=== PATIENT | female | born 1995 | race African-American/Black ===

== ENCOUNTER 2017-08-28 13:23 | Emergency (ER) | payer OTHER, MEDICAID, SELFPAY ==
[2017-08-28 13:27] VITALS: BP 125/77; PULSE 69; RESP 14; TEMP 36.8; O2SAT 100; BMI 26.5
--- NOTE | 2017-08-28 13:28 | ED.ABDPAIN ---
HPI - Abdominal Pain <THEODORE Padgett - Last Filed: 08/28/17 22:30> General Chief Complaint: Urogenital-Female Stated Complaint: ABDOMINAL PAIN Time Seen by Provider: 08/28/17 13:28 History of Present Illness HPI narrative: 22-year-old female here for complaint of having pain to the lower abdominal area/pelvic region for the past week and a half. She reports that she has whitish vaginal discharge. She denies any fevers or chills. She also states that she has had burning with urination. No flank pain. Positive p.o. intake. No nausea or vomiting. She does report that she is sexually active. She denies any other concerns or complaints at this time. Related Data Home Medications Medication Instructions Recorded Confirmed ibuprofen 800 mg PO TIDP PRN 08/28/17 08/28/17 Allergies Allergy/AdvReac Type Severity Reaction Status Date / Time hydromorphone [From DILAUDID] Allergy Severe APNEA Verified 08/28/17 13:30 tramadol [TRAMADOL] Allergy Unknown Verified 08/28/17 13:30 Review of Systems <THEODORE Padgett - Last Filed: 08/28/17 22:30> Constitutional Denies chills, Denies fever(s), Denies lethargy and Denies weakness Eyes Denies change in vision, Denies eye discharge, Denies irritation and Denies loss of vision ENT Ears, Nose, Mouth, and Throat: Denies change in voice, Denies neck pain and Denies sore throat Cardiovascular Denies chest pain, Denies irregular heart rhythm, Denies lightheadedness, Denies palpitations, Denies dyspnea, Denies dyspnea on exertion and Denies orthopnea Respiratory Denies cough, Denies dyspnea, Denies dyspnea on exertion and Denies wheezing Genitourinary Reports pelvic pain and Reports vaginal discharge Musculoskeletal Denies neck pain Integumentary/Breasts Denies pruritus, Denies erythema, Denies rash and Denies wounds Neurologic Denies confusion, Denies loss of vision and Denies weakness Psychiatric Denies anxiety, Denies confusion, Denies depression, Denies homicidal ideation and Denies suicidal ideation Endocrine Denies palpitations Hematologic/Lymphatic Denies easy bruising Allergic/Immunologic Denies wheezing Exam <THEODORE Padgett - Last Filed: 08/28/17 22:30> Initial Vital Signs Initial Vital Signs: Vital Signs Temperature 98.3 F 08/28/17 13:27 Pulse Rate 69 08/28/17 13:27 Respiratory Rate 14 08/28/17 13:27 Blood Pressure 125/77 H 08/28/17 13:27 Pulse Oximetry 100 08/28/17 13:27 Const General: cooperative and well developed Nutritional Appearance: well nourished Orientation: alert, awake, oriented x3 and not confused [facility] Mouth: oral mucosae normal and moist mucous membranes Eyes Conjunctivae: conjunctivae normal Sclera: sclerae normal Pupils: PERRL EOM: EOM intact bilaterally Resp Effort & Inspection: normal respiratory effort, able to speak in complete sentences, no respiratory distress and no use of accessory muscles Auscultation: clear to auscultation bilaterally, no rales, no rhonchi and no wheezes Cardio Rate: regular rate Rhythm: regular rhythm Heart Sounds: no click, no gallops, no murmurs and no rubs GI Inspection: non-distended Palpation: soft, no hepatosplenomegaly, No guarding, No hernia, No mass, No pulsatile mass and tender Auscultation: normal bowel sounds General: No CVA tenderness External Female Exam: external appearance normal and normal appearance of the urethra Speculum Exam - Vagina: abnormal vaginal discharge white Speculum Exam - Cervix: normal appearance of the cervix Bimanual Exam- Vagina & Uterus: cervical motion tenderness Bimanual Exam- Adnexa, other: no adnexal masses and adnexal tenderness Skin General: no rashes or lesions noted, No jaundice and No petechiae Neuro General: alert, oriented x3, gait normal and no focal motor deficits Speech: speech normal Extrem General: full ROM, no clubbing, cyanosis or edema, no pedal edema and no calf tenderness <Kassie Goodrich DO - Last Filed: 09/04/17 18:48> Initial Vital Signs Initial Vital Signs: Vital Signs Temperature 98.3 F 08/28/17 13:27 Pulse Rate 69 08/28/17 13:27 Respiratory Rate 14 08/28/17 13:27 Blood Pressure 125/77 H 08/28/17 13:27 Pulse Oximetry 100 08/28/17 13:27 Course <THEODORE Padgett - Last Filed: 08/28/17 22:30> Orders Ordered: Discontinued Medications Acetaminophen (Tylenol) 650 mg PO NOW ONE Stop: 08/28/17 17:19 Last Admin: 08/28/17 17:57 Dose: 650 mg Azithromycin (Zithromax) 1,000 mg PO NOW ONE Stop: 08/28/17 17:20 Last Admin: 08/28/17 17:57 Dose: 1,000 mg Ceftriaxone Sodium (Rocephin) 500 mg IM NOW ONE Stop: 08/28/17 17:20 Ceftriaxone Sodium (Rocephin) 500 mg IM NOW ONE Stop: 08/28/17 17:31 Ceftriaxone Sodium (Rocephin) 1,000 mg IM NOW ONE Stop: 08/28/17 17:27 Ceftriaxone Sodium (Rocephin) 500 mg IM NOW ONE Stop: 08/28/17 18:16 Last Admin: 08/28/17 18:09 Dose: 500 mg Ceftriaxone Sodium/Dextrose (Rocephin) 1 gm in 50 mls @ 100 mls/hr IV NOW ONE Stop: 08/28/17 17:53 Lidocaine HCl (Xylocaine 1%) 2.1 ml INJ NOW ONE Stop: 08/28/17 17:20 Metronidazole (Metronidazole) 2,000 mg PO NOW ONE Stop: 08/28/17 17:30 Last Admin: 08/28/17 18:04 Dose: 2,000 mg Vital Signs - 8 hr 08/28/17 17:02 08/28/17 17:25 Pulse Rate 84 63 Respiratory Rate 13 16 Blood Pressure [Right Arm] 119/74 119/74 Pulse Oximetry 100 100 <Kassie Goodrich DO - Last Filed: 09/04/17 18:48> Orders Ordered: Discontinued Medications Acetaminophen (Tylenol) 650 mg PO NOW ONE Stop: 08/28/17 17:19 Last Admin: 08/28/17 17:57 Dose: 650 mg Azithromycin (Zithromax) 1,000 mg PO NOW ONE Stop: 08/28/17 17:20 Last Admin: 08/28/17 17:57 Dose: 1,000 mg Ceftriaxone Sodium (Rocephin) 500 mg IM NOW ONE Stop: 08/28/17 17:20 Ceftriaxone Sodium (Rocephin) 500 mg IM NOW ONE Stop: 08/28/17 17:31 Ceftriaxone Sodium (Rocephin) 1,000 mg IM NOW ONE Stop: 08/28/17 17:27 Ceftriaxone Sodium (Rocephin) 500 mg IM NOW ONE Stop: 08/28/17 18:16 Last Admin: 08/28/17 18:09 Dose: 500 mg Ceftriaxone Sodium/Dextrose (Rocephin) 1 gm in 50 mls @ 100 mls/hr IV NOW ONE Stop: 08/28/17 17:53 Lidocaine HCl (Xylocaine 1%) 2.1 ml INJ NOW ONE Stop: 08/28/17 17:20 Metronidazole (Metronidazole) 2,000 mg PO NOW ONE Stop: 08/28/17 17:30 Last Admin: 08/28/17 18:04 Dose: 2,000 mg Vital Signs - 8 hr 08/28/17 17:02 08/28/17 17:25 Pulse Rate 84 63 Respiratory Rate 13 16 Blood Pressure [Right Arm] 119/74 119/74 Pulse Oximetry 100 100 MDM - Abdominal Pain <THEODORE Padgett - Last Filed: 08/28/17 22:30> Lab Data Result diagrams: 08/28/17 13:09 08/28/17 13:09 Lab Results 08/28/17 08/28/17 08/28/17 Range/Units 13:09 13:09 14:12 WBC 13.5 H (4.5-11.0) X10^3/uL RBC 4.44 (4.0-5.2) X10^6/uL Hgb 13.7 (12.0-16.0) g/dL Hct 40.6 (36-46) % MCV 91.5 (80-100) fL MCH 30.9 (26-34) PG MCHC 33.8 (30-36) % RDW 14.5 (11.6-14.8) % Plt Count 191 (150-400) X10^3/uL Neut % (Auto) 70.5 (50-75) % Lymph % (Auto) 21.9 L (25-40) % Warrick % (Auto) 6.4 (3-14) % Eos % (Auto) 0.9 L (2-4) % Baso % (Auto) 0.3 (0-2) % Neut # (Auto) 9600 H (1232-6104) /uL Sodium 142 (137-145) mmol/L Potassium 4.2 (3.4-5.1) mmol/L Chloride 101 (98-107) mmol/L Carbon Dioxide 30 (22-32) mmol/L BUN 9 (7-17) mg/dL Creatinine 0.80 (0.52-1.04) mg/dL Estimated GFR > 60.0 (>60) mL/min BUN/Creatinine Ratio 11.3 (6-22) Glucose 79 (70-100) mg/dL Calcium 9.3 (8.4-10.2) mg/dL Total Bilirubin 0.4 (0.2-1.3) mg/dL AST 18 (14-36) IU/L ALT 28 (9-52) IU/L Alkaline Phosphatase 74 (38-126) U/L Total Protein 7.2 (6.3-8.2) g/dL Albumin 4.1 (3.5-5.0) g/dL Globulin 3.1 (1.7-4.1) g/dL Albumin/Globulin Ratio 1.3 (1.0-2.8) Urine RBC 0-1/hpf (0-5/HPF) Urine WBC 10-30/hpf H (0-5/HPF) Ur Squamous Epith Cells 1-5 /hpf Urine Bacteria Moderate (10-30) H (None) Ur Culture Indicated? Specimen cultured Micro UA Comment Not Reportable Ur Chlamydia DNA (PCR) N gonorrhoeae DNA (PCR) 08/28/17 Range/Units 14:56 WBC (4.5-11.0) X10^3/uL RBC (4.0-5.2) X10^6/uL Hgb (12.0-16.0) g/dL Hct (36-46) % MCV (80-100) fL MCH (26-34) PG MCHC (30-36) % RDW (11.6-14.8) % Plt Count (150-400) X10^3/uL Neut % (Auto) (50-75) % Lymph % (Auto) (25-40) % Warrick % (Auto) (3-14) % Eos % (Auto) (2-4) % Baso % (Auto) (0-2) % Neut # (Auto) (2978-9643) /uL Sodium (137-145) mmol/L Potassium (3.4-5.1) mmol/L Chloride (98-107) mmol/L Carbon Dioxide (22-32) mmol/L BUN (7-17) mg/dL Creatinine (0.52-1.04) mg/dL Estimated GFR (>60) mL/min BUN/Creatinine Ratio (6-22) Glucose (70-100) mg/dL Calcium (8.4-10.2) mg/dL Total Bilirubin (0.2-1.3) mg/dL AST (14-36) IU/L ALT (9-52) IU/L Alkaline Phosphatase (38-126) U/L Total Protein (6.3-8.2) g/dL Albumin (3.5-5.0) g/dL Globulin (1.7-4.1) g/dL Albumin/Globulin Ratio (1.0-2.8) Urine RBC (0-5/HPF) Urine WBC (0-5/HPF) Ur Squamous Epith Cells Urine Bacteria (None) Ur Culture Indicated? Micro UA Comment Ur Chlamydia DNA (PCR) Detected H N gonorrhoeae DNA (PCR) Not detected Imaging Data pelvic us: Radiologist's impression: PROCEDURE: US PELVIC COMPLETE INDICATIONS: Lower abdominal/pelvic pain TECHNIQUE: Real-time scanning was performed of the pelvic organs, with image documentation. Additional endovaginal scanning was necessary due to incomplete visualization of the adnexal and endometrial structures by transabdominal scanning. COMPARISON: [facility], US, PELVIC COMPLETE, 09/26/2015, 15:57. FINDINGS: Transabdominal scanning: Limited scanning through the kidneys shows no hydronephrosis. The kidneys measure 10.3 CM right and 10.8 CM left. No pathologic free abdominal or pelvic fluid. Endovaginal scanning: Uterus: Uterus is normal in size at 3.8 x 4.9 x 7.4 cm. The endometrium measures 6 mm in combined thickness. Ovaries: The right ovary measures 24 x 30 x 31 mm and contains a small complex cyst measuring 13 x 14 x 19 mm. The left ovary measures 24 x 27 x 30 mm and contains a small 0.8 x 1.0 x 1.1 cm complex cyst. IMPRESSION: Small bilateral complex ovarian cysts, likely hemorrhagic. Both measure less than 2 cm in size. Dictated by: Ricardo Mcqueen M.D. on 08/28/2017 at 15:38 Approved by: Ricardo Mcqueen M.D. on 08/28/2017 at 15:42 MDM Narrative Medical decision making narrative: Ultrasound of the pelvic region shows 2 small cyst 1 each side most likely hemorrhagic suspect for contributing to her discomfort. Wet prep shows positive for Trichomonas. GC chlamydia urine intention to indicates chlamydia positive. Urinalysis shows urinary tract infection. She was given 1 g of Rocephin IM in the emergency room. She was also given azithromycin 1 g p.o. and 2 g of metronidazole p.o. she is placed on Macrobid antibiotic to treat the urinary tract infection. Plenty of fluids. She was instructed to notify her partner her of the results to abstain from sex until cleared by her primary care. Follow up with primary care provider. For any worsening symptoms return to the emergency room. <Kassie Goodrich DO - Last Filed: 09/04/17 18:48> Lab Data Lab Results 08/28/17 08/28/17 08/28/17 Range/Units 13:09 13:09 14:12 WBC 13.5 H (4.5-11.0) X10^3/uL RBC 4.44 (4.0-5.2) X10^6/uL Hgb 13.7 (12.0-16.0) g/dL Hct 40.6 (36-46) % MCV 91.5 (80-100) fL MCH 30.9 (26-34) PG MCHC 33.8 (30-36) % RDW 14.5 (11.6-14.8) % Plt Count 191 (150-400) X10^3/uL Neut % (Auto) 70.5 (50-75) % Lymph % (Auto) 21.9 L (25-40) % Warrick % (Auto) 6.4 (3-14) % Eos % (Auto) 0.9 L (2-4) % Baso % (Auto) 0.3 (0-2) % Neut # (Auto) 9600 H (5817-7419) /uL Sodium 142 (137-145) mmol/L Potassium 4.2 (3.4-5.1) mmol/L Chloride 101 (98-107) mmol/L Carbon Dioxide 30 (22-32) mmol/L BUN 9 (7-17) mg/dL Creatinine 0.80 (0.52-1.04) mg/dL Estimated GFR > 60.0 (>60) mL/min BUN/Creatinine Ratio 11.3 (6-22) Glucose 79 (70-100) mg/dL Calcium 9.3 (8.4-10.2) mg/dL Total Bilirubin 0.4 (0.2-1.3) mg/dL AST 18 (14-36) IU/L ALT 28 (9-52) IU/L Alkaline Phosphatase 74 (38-126) U/L Total Protein 7.2 (6.3-8.2) g/dL Albumin 4.1 (3.5-5.0) g/dL Globulin 3.1 (1.7-4.1) g/dL Albumin/Globulin Ratio 1.3 (1.0-2.8) Urine RBC 0-1/hpf (0-5/HPF) Urine WBC 10-30/hpf H (0-5/HPF) Ur Squamous Epith Cells 1-5 /hpf Urine Bacteria Moderate (10-30) H (None) Ur Culture Indicated? Specimen cultured Micro UA Comment Not Reportable Ur Chlamydia DNA (PCR) N gonorrhoeae DNA (PCR) 08/28/17 Range/Units 14:56 WBC (4.5-11.0) X10^3/uL RBC (4.0-5.2) X10^6/uL Hgb (12.0-16.0) g/dL Hct (36-46) % MCV (80-100) fL MCH (26-34) PG MCHC (30-36) % RDW (11.6-14.8) % Plt Count (150-400) X10^3/uL Neut % (Auto) (50-75) % Lymph % (Auto) (25-40) % Warrick % (Auto) (3-14) % Eos % (Auto) (2-4) % Baso % (Auto) (0-2) % Neut # (Auto) (1936-5387) /uL Sodium (137-145) mmol/L Potassium (3.4-5.1) mmol/L Chloride (98-107) mmol/L Carbon Dioxide (22-32) mmol/L BUN (7-17) mg/dL Creatinine (0.52-1.04) mg/dL Estimated GFR (>60) mL/min BUN/Creatinine Ratio (6-22) Glucose (70-100) mg/dL Calcium (8.4-10.2) mg/dL Total Bilirubin (0.2-1.3) mg/dL AST (14-36) IU/L ALT (9-52) IU/L Alkaline Phosphatase (38-126) U/L Total Protein (6.3-8.2) g/dL Albumin (3.5-5.0) g/dL Globulin (1.7-4.1) g/dL Albumin/Globulin Ratio (1.0-2.8) Urine RBC (0-5/HPF) Urine WBC (0-5/HPF) Ur Squamous Epith Cells Urine Bacteria (None) Ur Culture Indicated? Micro UA Comment Ur Chlamydia DNA (PCR) Detected H N gonorrhoeae DNA (PCR) Not detected Discharge Plan Departure Patient Disposition: Home, Self-Care Clinical Impression: Trichomoniasis, Urinary tract infection, Chlamydia infection, Acute pelvic inflammatory disease (PID) Discharge Date/Time: 08/28/17 18:19 Interventions: ED Discharge Assessment Last Done: 08/28/17 18:18 Instructions: DI for Pelvic Inflammatory Disease Activity Restrictions/Additional Instructions: Ultrasound showed 2 small cysts bilaterally that may be causing some of year discomfort. Laboratory results were positive for chlamydia and Trichomonas. Here given antibiotics to treat the infection and for PID. Follow up with your primary care provider. Abstain from sex until cleared by primary care provider. Notify your partner of results and need to be treated. Tylenol Motrin as needed for any discomfort. Urinalysis indicates urinary tract infection you have been placed on Macrobid antibiotic use as directed. Plenty of fluids. Return emergency room for any worsening symptoms. Prescriptions: No Action ibuprofen 800 MG tablet 800 mg PO TIDP PRN (Reason: Pain, Moderate) RF: 0 Referrals: [facility] [Provider Group] <Kassie Goodrich, DO - Last Filed: 09/04/17 18:48> Cosign ED Attending Jose Roberto Attestation: I was immediately available in the department for consultation. Documentation has been reviewed. I agree with assessment and plan.
[2017-08-28 14:32] LABS: RBC Urine 0-1/HPF (0-5/HPF); Squamous Epithelial Cell Urine 1-5 /HPF; WBC Urine 10-30/HPF (0-5/HPF)
[2017-08-28 14:33] LABS: Bacteria Urine Moderate (10-30); Culture Indicated Urine Specimen Cultured
--- NOTE | 2017-08-28 14:49 | DI.US.S_ITS ---
PROCEDURE: US PELVIC COMPLETE INDICATIONS: Lower abdominal/pelvic pain TECHNIQUE: Real-time scanning was performed of the pelvic organs, with image documentation. Additional endovaginal scanning was necessary due to incomplete visualization of the adnexal and endometrial structures by transabdominal scanning. COMPARISON: [facility], , PELVIC COMPLETE, 09/26/2015, 15:57. FINDINGS: Transabdominal scanning: Limited scanning through the kidneys shows no hydronephrosis. The kidneys measure 10.3 CM right and 10.8 CM left. No pathologic free abdominal or pelvic fluid. Endovaginal scanning: Uterus: Uterus is normal in size at 3.8 x 4.9 x 7.4 cm. The endometrium measures 6 mm in combined thickness. Ovaries: The right ovary measures 24 x 30 x 31 mm and contains a small complex cyst measuring 13 x 14 x 19 mm. The left ovary measures 24 x 27 x 30 mm and contains a small 0.8 x 1.0 x 1.1 cm complex cyst. IMPRESSION: Small bilateral complex ovarian cysts, likely hemorrhagic. Both measure less than 2 cm in size. Dictated by: Ricardo Mcqueen M.D. on 08/28/2017 at 15:38 Approved by: Ricardo Mcqueen M.D. on 08/28/2017 at 15:42
[2017-08-28 15:21] LABS: Add Manual Diff / Slide Review NO; Basophils Percent Auto 0.3 % (0-2); Eosinophils Percent Auto 0.9 % (2-4); Hematocrit 40.6 % (36-46); Hemoglobin 13.7 g/dL (12.0-16.0); Lymphocytes Percent Auto 21.9 % (25-40); Mean Corpuscular HGB Conc 33.8 % (30-36); Mean Corpuscular Hemoglobin 30.9 PG (26-34); Mean Corpuscular Volume 91.5 fL (80-100); Monocytes Percent Auto 6.4 % (3-14); Neutrophils Absolute Auto 9600 /uL (3000-5900); Neutrophils Percent Auto 70.5 % (50-75); Platelet Count 191 X10^3/uL (150-400); Red Blood Cell Count 4.44 X10^6/uL (4.0-5.2); Red Cell Distribution Width 14.5 % (11.6-14.8); White Blood Cell Count 13.5 X10^3/uL (4.5-11.0)
[2017-08-28 15:32] LABS: Alanine Aminotransferase 28 IU/L (9-52); Albumin 4.1 g/dL (3.5-5.0); Albumin Globulin Ratio 1.3 (1.0-2.8); Alkaline Phosphatase 74 U/L (38-126); Aspartate Aminotransferase 18 IU/L (14-36); BUN Creatinine Ratio 11.3 (6-22); Bilirubin Total 0.4 mg/dL (0.2-1.3); Blood Urea Nitrogen 9 mg/dL (7-17); Calcium 9.3 mg/dL (8.4-10.2); Carbon Dioxide 30 mmol/L (22-32); Chloride 101 mmol/L (98-107); Estimated Glomerular Filt Rate > 60.0 mL/min (>60); Globulin 3.1 g/dL (1.7-4.1); Glucose 79 mg/dL (70-100); HEMOLYSIS < 15 (0-50); Potassium 4.2 mmol/L (3.4-5.1); Sodium 142 mmol/L (137-145); Total Protein 7.2 g/dL (6.3-8.2)
[2017-08-28 16:39] LABS: Urine N gonorrhoeae Not Detected
[2017-08-28 17:02] VITALS: BP 119/74; PULSE 84; RESP 13; O2SAT 100
[2017-08-28 17:25] VITALS: BP 119/74; PULSE 63; RESP 16; O2SAT 100
[2017-08-28] MEDS: AZITHROMYCIN 250 MG TABLET 1000 MG PO (17:57)
[2017-08-28] MEDS: ACETAMINOPHEN 325 MG TABLET 650 MG PO (17:57)
[2017-08-28] MEDS: metroNIDAZOLE 500 MG TABLET 2000 MG PO (18:04)
[2017-08-28] MEDS: cefTRIAXone 500 MG VIAL IM (18:09)
[2017-08-29 08:23] LABS: Urine Chlamydia Detected
== END 2017-08-28 18:19 | disposition home or self-care (01) ==
PROVIDERS: Emergency Provider Nurse Practitioner Family
DX: N39.0 Urinary tract infection, site not specified (principal); A59.9 Trichomoniasis, unspecified; A74.9 Chlamydial infection, unspecified; N73.0 Acute parametritis and pelvic cellulitis
CPT/HCPCS: 36415; 76830; 76856; 80053; 81003; 81015; 81025; 85025; 87070; 87077; 87086; 87205; 87210; 87491; 87591; 96372; 99283; 99284; J0696

== ENCOUNTER → 2018-02-06 12:10 | Outpatient (CLI) | payer OTHER, MEDICAID, SELFPAY ==
--- NOTE | 2018-02-06 | DI.US.S_ITS ---
PROCEDURE: US OB >= 14 WEEKS FETUS INDICATIONS: SIZE AND DATING OUTSIDE/PRIOR DATING DATA: Last menstrual period (LMP): 10/24/17. LMP-based estimated date of delivery (TERESITA): 07/31/18. First dating scan (date and location): 02/06/18. Estimated date of delivery (TERESITA) from first dating scan: 07/28/18. TECHNIQUE: Real-time scanning was performed of the fetus, with image documentation and biometric measurements. Endovaginal scanning: No COMPARISON: None. FINDINGS: General: A single living intrauterine gestation is present. Presentation: Variable. Placenta: Placental position is posterior Amniotic fluid index: Subjectively normal. heart rate: 160 beats per minute. Maternal cervical canal: 3.1 cm long. biometrics: Biparietal diameter: 16 weeks Head circumference: 16 weeks 5 days Abdominal circumference: 15 weeks 4 days Femur length: 14 weeks 5 days Estimated gestational age from initial scan: not applicable. Composite gestational age from present scan: 15 weeks 3 days Estimated weight and percentile: N./A. Measurement variability for biometric dating: +/- 7 days from 14 weeks to 15 weeks 6 days gestation, +/- 10 days from 16 weeks to 21 weeks 6 days gestation, +/- 2 weeks from 22 weeks to 27 weeks 6 days gestation, +/- 3 weeks for 28 weeks gestation or later. weight reference: 4500 g or EFW >90/95% is considered macrosomia or large for gestational age. EFW <10% is small for gestational age. EFW 5% or less is considered intra-uterine growth restriction. IMPRESSION: 15 week 3 day single living IUP. Followup anatomic survey recommended. Dictated by: Bebeto HASSAN Interpreted: Arnel Morrison MD on 02/06/2018 at 14:29 Approved by: Siva Flores M.D. on 02/07/2018 at 10:06
[2018-02-06 12:53] LABS: Add Manual Diff / Slide Review NO; Basophils Percent Auto 0.4 % (0-2); Eosinophils Percent Auto 0.6 % (2-4); Hematocrit 37.7 % (36-46); Hemoglobin 12.9 g/dL (12.0-16.0); Lymphocytes Percent Auto 24.6 % (25-40); Mean Corpuscular HGB Conc 34.1 % (30-36); Mean Corpuscular Hemoglobin 31.8 PG (26-34); Mean Corpuscular Volume 93.1 fL (80-100); Monocytes Percent Auto 4.7 % (3-14); Neutrophils Absolute Auto 6800 /uL (3000-5900); Neutrophils Percent Auto 69.7 % (50-75); Platelet Count 223 X10^3/uL (150-400); Red Blood Cell Count 4.05 X10^6/uL (4.0-5.2); Red Cell Distribution Width 14.4 % (11.6-14.8); White Blood Cell Count 9.8 X10^3/uL (4.5-11.0)
[2018-02-06 12:59] LABS: Appearance Urine UA CLEAR; Bilirubin Urine UA NEGATIVE (NEGATIVE); Color Urine UA YELLOW; Glucose Urine UA NEGATIVE (Normal); Ketones Urine UA NEGATIVE (NEGATIVE); Leukocyte Esterase Urine UA NEGATIVE (NEGATIVE); Nitrite Urine UA NEGATIVE (Negative); Occult Blood Urine UA NEGATIVE (Negative); Protein Urine UA NEGATIVE (Negative); Specific Gravity Urine UA <=1.005 (1.000-1.035); Urobilinogen Urine UA 0.2 E.U./dL (0.2)
[2018-02-06 14:51] LABS: Glucose 64 mg/dL (70-100)
[2018-02-06 14:56] LABS: Hemoglobin A1C% w Est Avg Glu 5.1 % (4.0-6.0)
[2018-02-06 16:09] LABS: Hepatitis B Surface Antigen NEGATIVE s/c (NEGATIVE); Rubella Antibody IgG 17.4 IU/mL (>15)
[2018-02-06 16:26] LABS: HIV 1 and 2 Antibody NEGATIVE (NEGATIVE); Hep C Virus Ab w/Reflex Quant NEGATIVE s/c (NEGATIVE)
[2018-02-07 14:03] LABS: HSV 2 IGG AB < 0.90 index (< 0.90)
[2018-02-07 14:14] LABS: RPR Screen Nonreactive (Nonreactive)
== END ==
PROVIDERS: PCP Family Medicine; Visit Provider Family Medicine
DX: Z36.89 Encounter for other specified antenatal screening (principal); Z3A.15 15 weeks gestation of pregnancy; O26.892 Other specified pregnancy related conditions, second trimester; R55 Syncope and collapse
CPT/HCPCS: 36415; 76811; 80055; 81003; 82947; 83036; 86695; 86696; 86703; 86787; 86803; 86850; 86900; 86901; 87086

== ENCOUNTER → 2018-02-12 11:20 | Outpatient (CLI) | payer OTHER, MEDICAID, SELFPAY ==
[2018-02-17 10:23] LABS: AFP, Serum 39.3 ng/mL; Calc Gestational Age 15.9; Cigarette Smoker NO; Donated Egg NOT GIVEN; Donor Egg Age NOT GIVEN; Estriol, Free 0.74 ng/mL; Inhibin A, Dimeric 339 pg/mL; Maternal Ethnicity AFRICAN AMERICAN; Maternal Weight 144 lbs; Number of Fetuses NOT GIVEN; Previous Pregnancy Down Syndro NOT GIVEN
== END ==
PROVIDERS: PCP Family Medicine; Visit Provider Family Medicine
DX: Z34.82 Encounter for supervision of other normal pregnancy, second trimester (principal)
CPT/HCPCS: 36415; 82105; 82677; 84702; 86336

== ENCOUNTER → 2018-03-20 10:51 | Outpatient (CLI) | payer OTHER, MEDICAID, SELFPAY ==
--- NOTE | 2018-03-20 10:54 | DI.US.S_ITS ---
PROCEDURE: US OB >= 14 WEEKS FETUS INDICATIONS: Viability and dates OUTSIDE/PRIOR DATING DATA: Last menstrual period (LMP): 10/24/17. LMP-based estimated date of delivery (TERESITA): 07/31/18. First dating scan (date and location): 02/06/18. Estimated date of delivery (TERESITA) from first dating scan: 07/28/18. TECHNIQUE: Real-time scanning was performed of the fetus, with image documentation and biometric measurements. Endovaginal scanning: Not performed COMPARISON: [facility], , OB >= 14 WEEKS FETUS, 03/14/2018, 10:42. FINDINGS: General: A single living intrauterine gestation is present. Presentation: Vertex. Placenta: Placental position is anterior, without previa. Amniotic fluid index: 16.1 cm, normal range is 5-24 cm. heart rate: 162 beats per minute. Maternal cervical canal: 4.4 cm long. Normal lower limit is 2.5 cm. biometrics: Biparietal diameter: 5.1 cm, 21 weeks 3 days Head circumference: 19.4 cm, 21 weeks 4 days Abdominal circumference: 16.2 cm, 21 weeks 2 days Femur length: 3.8 cm, 22 weeks one day Estimated gestational age from initial scan: 21 weeks 3 days. Composite gestational age from present scan: 21 weeks 4 days Estimated weight and percentile: 439 g, 56th percentile Measurement variability for biometric dating: +/- 7 days from 14 weeks to 15 weeks 6 days gestation, +/- 10 days from 16 weeks to 21 weeks 6 days gestation, +/- 2 weeks from 22 weeks to 27 weeks 6 days gestation, +/- 3 weeks for 28 weeks gestation or later. weight reference: 4500 g or EFW >90/95% is considered macrosomia or large for gestational age. EFW <10% is small for gestational age. EFW 5% or less is considered intra-uterine growth restriction. Anatomic survey: Neuro: Ventricles are non-dilated at less than 10 mm. Cisterna magna is normal at 3-11 mm. Cerebellum is normal in size and morphology. Nuchal skin fold: Normal at less than 6 mm between 14-21 weeks gestational age. Face: Nose and lips, facial profile are normal. Spine: No evidence for spina bifida. Heart: 4-chambered heart is present, with normal ventricular outflow tracts. Diaphragm: Diaphragm is intact. Stomach: Left-sided stomach is present. Kidneys: No hydronephrosis. Normal is less than 5 mm in 2nd trimester, less than 7 mm in 3rd trimester. Cord: 3-vessel cord has orthotopic insertion. Bladder: Normal in size. Extremities: All 4 extremities identified. Mild bilateral maternal hydronephrosis. IMPRESSION: Single living intrauterine fetus in vertex presentation demonstrating appropriate interval growth as above. Presumed related mild bilateral maternal hydronephrosis Dictated by: Siva Flores M.D. on 03/20/2018 at 14:34 Approved by: Siva Flores M.D. on 03/20/2018 at 14:38
== END ==
PROVIDERS: PCP Family Medicine; Visit Provider Family Medicine
DX: Z36.89 Encounter for other specified antenatal screening (principal); Z3A.21 21 weeks gestation of pregnancy
CPT/HCPCS: 76811

== ENCOUNTER 2018-03-29 17:34 | Emergency (ER) | payer OTHER, MEDICAID, SELFPAY ==
[2018-03-29 17:48] VITALS: BP 112/73; PULSE 95; RESP 18; TEMP 37; O2SAT 100
--- NOTE | 2018-03-29 19:24 | ED_ITS ---
HPI - URI/Sore Throat <Erum Rubio PA-C - Last Filed: 03/29/18 22:00> General Chief Complaint: Upper Respiratory Symptoms Stated Complaint: cough, 22 weeks Time Seen by Provider: 03/29/18 19:11 Source: patient Mode of arrival: ambulatory Limitations: no limitations History of Present Illness HPI Narrative: This 22-year-old female who is 22 weeks comes in due to ongoing cough and now some nasal drainage and PND. She states that she has had the cough for over a month as has her 4-year-old son. She states that she has not had fever and she does not feel particularly ill. She states that she always has some fatigue and relative exercise intolerance when she is and this seems normal, she denies any acute dyspnea or wheeze. She denies any chest pain, no new swelling in her extremities. She states that her son came home ill prior to her developing the nasal symptoms. She states cough is worse at night and she has difficulty sleeping. She states that she does have a history of allergies, and also has needed an inhaler in the past only during . She denies any other acute symptoms today. She has had some intermittent cramping and saw OB recently, no acute changes. Related Data Home Medications Medication Instructions Recorded Confirmed ibuprofen 800 mg PO TIDP PRN 08/28/17 08/28/17 acetaminophen 325 mg capsule 325 mg PO Q6H PRN 02/06/18 02/06/18 1 tab PO DAILY 02/06/18 02/06/18 vitamin,calcium,aasqsnlz-lllm-whpov acid tablet Previous Rx's Medication Instructions Recorded ondansetron 4 mg disintegrating 4 mg PO Q6-8H PRN #30 tab 02/12/18 tablet Allergies Allergy/AdvReac Type Severity Reaction Status Date / Time hydromorphone [From DILAUDID] Allergy Severe APNEA Verified 08/28/17 13:30 tramadol [TRAMADOL] Allergy Unknown Verified 08/28/17 13:30 Review of Systems <Erum Rubio PA-C - Last Filed: 03/29/18 22:00> Review of Systems All systems reviewed & are unremarkable except as noted in HPI and below Exam <Erum Rubio PA-C - Last Filed: 03/29/18 22:00> Narrative Exam Narrative: GENERAL APPEARANCE: Patient sitting comfortably, in no distress. HEAD: No sinus TTP. EYES: PERRL, EOMI. EARS: Normal auditory canals, TMS intact with normal light reflexes. ORAL CAVITY: Normal oropharynx. THROAT: Clear. NECK/THYROID: Neck supple, full range of motion, no cervical lymphadenopathy. LUNGS: Clear to auscultation bilaterally, no cough on exam. HEART: RRR without murmur, nl S1, S2, no S3 or S4. EXTREMITIES: No edema, no calf tenderness Initial Vital Signs Initial Vital Signs: Vital Signs Temperature 98.6 F 03/29/18 17:48 Pulse Rate 95 H 03/29/18 17:48 Respiratory Rate 18 03/29/18 17:48 Blood Pressure 112/73 03/29/18 17:48 Pulse Oximetry 100 03/29/18 17:48 <Esau Jean DO - Last Filed: 03/30/18 04:34> Initial Vital Signs Initial Vital Signs: Vital Signs Temperature 98.6 F 03/29/18 17:48 Pulse Rate 95 H 03/29/18 17:48 Respiratory Rate 18 03/29/18 17:48 Blood Pressure 112/73 03/29/18 17:48 Pulse Oximetry 100 03/29/18 17:48 Course <Erum Rubio PA-C - Last Filed: 03/29/18 22:00> Orders Ordered: Discontinued Medications Albuterol (Ventolin Hfa Prepack) 1 box MISC SEEINSTR ONE Stop: 03/29/18 19:44 Last Admin: 03/29/18 19:50 Dose: 1 box Vital Signs - 8 hr 03/29/18 17:48 03/29/18 19:55 Temperature 98.6 F Pulse Rate 95 H 71 Respiratory Rate 18 16 Blood Pressure 112/73 108/71 Pulse Oximetry 100 98 <DO Akilah Pineda Last Filed: 03/30/18 04:34> Orders Ordered: Discontinued Medications Albuterol (Ventolin Hfa Prepack) 1 box MISC SEEINSTR ONE Stop: 03/29/18 19:44 Last Admin: 03/29/18 19:50 Dose: 1 box Vital Signs - 8 hr 03/29/18 17:48 03/29/18 19:55 Temperature 98.6 F Pulse Rate 95 H 71 Respiratory Rate 18 16 Blood Pressure 112/73 108/71 Pulse Oximetry 100 98 Discharge Plan Departure Patient Disposition: Home Clinical Impression: Cough present for greater than 3 weeks, Seasonal allergies, Asthma Discharge Date/Time: 03/29/18 19:57 Interventions: ED Discharge Assessment Last Done: 03/29/18 19:55 Instructions: Allergies, Respiratory (Alternative Therapy), DI for Asthma -- Adult Activity Restrictions/Additional Instructions: Please return as we talked about if you have any acutely worsening symptoms. Otherwise, please try the albuterol inhaler when you have cough, and and over- the-counter Zyrtec (generic is cetirizine) 10 mg each day at bedtime to help with the cough and nasal drainage. You can also use [id number]-[id number] saline nasal spray or rinses to help irrigate. Please call your PCP and let them know that you were seen in the emergency room, and need follow-up especially given that you are . It will be helpful to assess your progress with these medicines in order to determine whether you need further testing Prescriptions: No Action ondansetron 4 mg tablet,disintegrating 4 mg PO Q6-8H PRN (Reason: nausea and vomiting) Qty: 30 RF: 0 acetaminophen 325 mg capsule 325 mg PO Q6H PRNRF: 0 prenat.vits,marlene,eaz-lxik-yvezn tablet 1 tab PO DAILY RF: 0 ibuprofen 800 MG tablet 800 mg PO TIDP PRN (Reason: Pain, Moderate) RF: 0 Referrals: Naida Stokes MD [Primary Care Provider] - <Esau Jean DO - Last Filed: 03/30/18 04:34> Cosign ED Attending Jose Roberto Attestation: I was immediately available in the department for consultation. Documentation has been reviewed. I agree with assessment and plan.
[2018-03-29] MEDS: ALBUTEROL HFA PREPACK 1 BOX MISC (19:50)
[2018-03-29 19:55] VITALS: BP 108/71; PULSE 71; RESP 16; O2SAT 98
== END 2018-03-29 19:57 | disposition home or self-care (01) ==
PROVIDERS: Emergency Provider Internal Medicine; PCP Family Medicine
DX: J45.909 Unspecified asthma, uncomplicated (principal); R05 Cough
CPT/HCPCS: 99282

== ENCOUNTER 2018-07-05 20:05 | Observation (INO) | payer OTHER, MEDICAID, SELFPAY ==
[2018-07-05 21:44] LABS: RBC Urine None Seen (0-5/HPF)
[2018-07-05 21:46] LABS: Appearance Urine UA CLEAR; Bilirubin Urine UA NEGATIVE (NEGATIVE); Color Urine UA YELLOW; Glucose Urine UA NEGATIVE (Negative); Ketones Urine UA NEGATIVE (NEGATIVE); Leukocyte Esterase Urine UA 1+ (NEGATIVE); Nitrite Urine UA NEGATIVE (Negative); Occult Blood Urine UA NEGATIVE (Negative); Protein Urine UA NEGATIVE (Negative); Specific Gravity Urine UA <=1.005 (1.000-1.035); Urobilinogen Urine UA 0.2 E.U./dL (0.2)
[2018-07-05 21:57] LABS: Bacteria Urine Moderate (10-30); Culture Indicated Urine Specimen Cultured; Squamous Epithelial Cell Urine 1-5 /HPF (0-5/HPF); Urine Amphetamines Negative (Negative); Urine Barbiturates Negative (Negative); Urine Benzodiazepines Negative (Negative); Urine Cocaine Negative (Negative); Urine MDMA Negative (Negative); Urine Methadone Negative (Negative); Urine Methamphetamines Negative (Negative); Urine Morphine/Opi cutoff 2000 Negative (Negative); Urine Phencyclidine Negative (Negative); Urine Tetrahydrocannabinol Positive (Negative); WBC Urine 1-5/HPF (0-5/HPF)
[2018-07-05 21:58] LABS: Urine Oxycodone Negative (Negative); Urine Tricyclic Antidepressant Negative (Negative)
[2018-07-05 22:42] VITALS: BP 112/59; PULSE 80; RESP 18; TEMP 36.2
[2018-07-05 23:14] LABS: Urine N gonorrhoeae NOT DETECTED
[2018-07-05 23:15] LABS: Urine Chlamydia NOT DETECTED
== END 2018-07-05 22:20 | disposition home or self-care (01) ==
PROVIDERS: Family Provider Family Medicine; PCP Family Medicine
DX: O99.613 Diseases of the digestive system complicating pregnancy, third trimester (principal); Z3A.36 36 weeks gestation of pregnancy
CPT/HCPCS: 59025; 59050; 80305; 81001; 87086; 87491; 87591; G0378; G0379

== ENCOUNTER 2018-07-20 09:02 | Outpatient (CLI) | payer OTHER, MEDICAID, SELFPAY ==
--- NOTE | 2018-07-23 07:46 | PM.OBTRLD ---
Visit Information Visit Information Date of evaluation: 07/20/18 On-call OB Provider: Naida Stokes Reason for Evaluation: Yes rule out labor PFSH Social History Smoking Status: Never smoker Social History Smoking Status: Never smoker Evaluation Evaluation Baseline heart rate: 140 Variability: Moderate (11-25) monitor accelerations: Present monitor decelerations: Absent Uterine Contraction Intensity: Mild Category of Tracing: I Diagnosis, Plan/Disposition Final Diagnosis (1) Irregular contractions: Current Visit: No Status: Acute Plan/Disposition OB Disposition: home
== END 2018-07-20 10:35 | disposition home or self-care (01) ==
LOC: LABOR 09:06 → OB 07-21 15:15
PROVIDERS: Family Provider Family Medicine; PCP Family Medicine; Visit Provider Family Medicine
DX: O62.2 Other uterine inertia (principal)
CPT/HCPCS: 59025; G0378; G0379

== ENCOUNTER 2018-07-20 20:50 | Inpatient (IN) | payer OTHER, MEDICAID, SELFPAY ==
[2018-07-20 21:41] LABS: Add Manual Diff / Slide Review NO; Basophils Absolute Auto 100 /uL (0-100); Basophils Percent Auto 0.4 % (0-2); Eosinophils Absolute Auto 0 /uL (0-450); Eosinophils Percent Auto 0.2 % (2-4); Hematocrit 33.6 % (36-46); Lymphocytes Absolute Auto 2500 /uL (1100-4500); Lymphocytes Percent Auto 18.4 % (25-40); Mean Corpuscular HGB Conc 32.8 % (30-36); Mean Corpuscular Hemoglobin 28.5 PG (26-34); Mean Corpuscular Volume 87.1 fL (80-100); Monocytes Absolute Auto 800 /uL (0-900); Monocytes Percent Auto 5.9 % (3-14); Neutrophils Absolute Auto 10300 /uL (1500-7000); Neutrophils Percent Auto 75.1 % (50-75); Platelet Count 287 X10^3/uL (150-400); Red Blood Cell Count 3.86 X10^6/uL (4.0-5.2); Red Cell Distribution Width 14.8 % (11.6-14.8); White Blood Cell Count 13.7 X10^3/uL (4.5-11.0)
[2018-07-20 22:04] VITALS: TEMP 36.5
[2018-07-20] MEDS: fentaNYL 100 MCG/2 ML INJ 50 MCG IV (22:04)
[2018-07-21] MEDS: OXYTOCIN 10 UNIT/ML VIAL IM (00:08)
[2018-07-21] MEDS: METHYLERGONOVINE 0.2 MG/ML VIAL IM (00:08)
--- NOTE | 2018-07-21 00:32 | PM.OBHP.1 ---
OB HPI Date/Time Date of admission: 07/20/18 Date Patient Seen: 07/20/18 Time Patient Seen: 23:30 History of Present Condition Chief complaint: LABOR AND DELIVERY : 5 Para: 1 Estimated Date of Delivery: 07/31/18 Estimated Gestational Age (weeks): 38w4d Narrative: Rajendra Johnson is a 23 year old who presented with regular painful contractions. The pt reports having contractions starting around 6pm. They have been increasing in intensity and frequency since that time. She denies any LOF or vaginal bleeding. She has been feeling baby move regularly. History of Present care: good care Dating criteria: LMP confirmed by 2nd trimester US Ultrasounds: normal mid trimester US Obstetrical complications: none Medical complications: none Preadmission Labs Blood type: A (+) positive -: Antibody screen: negative, GBS status: negative, HBsAG: negative, HIV: negative, HSV 1: positive, HSV 2: negative and RPR/VDLR: negative -: Rubella: immune and Varicella: immune HCAB: negative 1 hr GTT: 71 Prior (ies) History: 05/26/13 - at 40wks, 7lb5oz Evaluation Evaluation Baseline heart rate: 145 Variability: Moderate (11-25) monitor accelerations: Present monitor decelerations: Absent Contraction Frequency (minutes): 3 Uterine Contraction Intensity: Strong/Firm Category of Tracing: I Cervical dilation (cm): 7 Cervical effacement (%): 100 station: 0 Laboratory results: Laboratory Tests 07/20/18 07/20/18 21:30 21:30 WBC 13.7 H RBC 3.86 L Hgb 11.0 L Hct 33.6 L MCV 87.1 MCH 28.5 MCHC 32.8 RDW 14.8 Plt Count 287 Neut % (Auto) 75.1 H Lymph % (Auto) 18.4 L [place] % (Auto) 5.9 Eos % (Auto) 0.2 L Baso % (Auto) 0.4 Neut # (Auto) 25113 H Lymph # (Auto) 2500 [place] # (Auto) 800 Eos # (Auto) 0 Baso # (Auto) 100 Blood Type A Positive Antibody Screen Negative [facility] Social History Smoking Status: Never smoker Social History Smoking Status: Never smoker Meds Allergies Allergy/AdvReac Type Severity Reaction Status Date / Time hydromorphone [From DILAUDID] Allergy Severe APNEA Verified 08/28/17 13:30 tramadol [TRAMADOL] Allergy Unknown Verified 08/28/17 13:30 Exam Vital Signs (past 8 hours): - 07/20/18 22:04 Temperature 97.7 F Narrative Exam Narrative: Gen: NAD, sitting comfortably in bed, appears well CV: RRR, no murmurs Resp: clear to auscultation bilaterally Abd: soft, gravid, nondistended Ext: no edema Objective Labs Result Diagrams: 07/20/18 21:30 Labs: Laboratory Results - last 24 hr 07/20/18 07/20/18 21:30 21:30 WBC 13.7 H RBC 3.86 L Hgb 11.0 L Hct 33.6 L MCV 87.1 MCH 28.5 MCHC 32.8 RDW 14.8 Plt Count 287 Neut % (Auto) 75.1 H Lymph % (Auto) 18.4 L [place] % (Auto) 5.9 Eos % (Auto) 0.2 L Baso % (Auto) 0.4 Neut # (Auto) 20200 H Lymph # (Auto) 2500 [place] # (Auto) 800 Eos # (Auto) 0 Baso # (Auto) 100 Blood Type A Positive Antibody Screen Negative Assessment and Plan Assessment and Plan Assessment and Plan narrative: 23yo at 38w4d who presented in active labor. GBS negative, Rh positive. - Expectant management, anticipate - FHT reassuring - GBS negative, no antibiotics indicated - Epidural for pain control in place
--- NOTE | 2018-07-21 00:41 | P.PCNOB_ITS ---
Delivery date: 07/21/18 Intrapartal events: None Cervical ripening method: none Induction method: none Delivery augmentation: rupture of membranes Delivery monitor: external FHT Route of delivery: Episiotomy description: None L&D Laceration Description: None Estimated blood loss (mL): 450 Anesthesia type: Epidural Complications: None Narrative: PROCEDURE: at 38w4d presented in active labor and was admitted to Labor and Delivery. The patient progressed through the 1st stage over 5.5 hours. Pain was controlled with an epidural. AROM was performed once the pt was completely dilated and +2 station, with clear fluid present. The patient progressed through the 2nd stage over 34 minutes and delivered a viable female infant with APGARs 9/9 at 00:00 via . Due to brisk bleeding, and poor uterine tone, an additional 10 units of IM pitocin was given IM in addition to the 10 units in the IVF, in addition to 0.2mg of IM Methergine. Bimanual massage was also performed. The uterus then developed adequate tone and was quite firm. The perineum and vagina were inspected with no lacerations. PREPROCEDURE DIAGNOSIS: Intrauterine at 38w4d GBS negative RH positive POSTPROCEDURE DIAGNOSIS: Intrauterine at 38w4d, delivered Same as preprocedure ROM APPEARANCE: Clear BABY A OUTCOME: Viable BABY A WEIGHT: 7lb5oz BABY A NUCHAL CORD: None PLACENTA DELIVERY TIME: 00:08 PLACENTA APPEARANCE: Intact [place] Baby 1: Infant gender: Female Presentation: vertex position: Right Occiput Anterior Placenta delivery description: Spontaneous cord vessel description: 3 Vessels score (1 min): 9 score (5 min): 9 Plan for aftercare: Normal care
[2018-07-21 01:09] VITALS: BP 130/75
[2018-07-21] MEDS: IBUPROFEN 600 MG TABLET PO ×4 (03:32→23:43)
[2018-07-21] MEDS: OXYCODONE/ACETAMINOPHEN 5/325 TABLET 1 TAB PO ×4 (08:23→22:01)
[2018-07-21] MEDS: OXYCODONE/ACETAMINOPHEN 5/325 TABLET 2 TAB PO (17:12)
[2018-07-21 18:24] LABS: Urine Amphetamines Negative (Negative); Urine Barbiturates Negative (Negative); Urine Benzodiazepines Negative (Negative); Urine Cocaine Negative (Negative); Urine MDMA Negative (Negative); Urine Methadone Negative (Negative); Urine Methamphetamines Negative (Negative); Urine Morphine/Opi cutoff 2000 Negative (Negative); Urine Oxycodone Negative (Negative); Urine Phencyclidine Negative (Negative); Urine Tetrahydrocannabinol Positive (Negative); Urine Tricyclic Antidepressant Negative (Negative)
[2018-07-22] MEDS: OXYCODONE/ACETAMINOPHEN 5/325 TABLET 2 TAB PO (06:31)
[2018-07-22] MEDS: IBUPROFEN 600 MG TABLET PO (06:35)
[2018-07-22 06:51] LABS: Add Manual Diff / Slide Review NO; Basophils Absolute Auto 100 /uL (0-100); Basophils Percent Auto 0.5 % (0-2); Eosinophils Absolute Auto 100 /uL (0-450); Hematocrit 26.8 % (36-46); Hemoglobin 8.8 g/dL (12.0-16.0); Lymphocytes Absolute Auto 5000 /uL (1100-4500); Lymphocytes Percent Auto 42.6 % (25-40); Mean Corpuscular Hemoglobin 28.3 PG (26-34); Mean Corpuscular Volume 85.9 fL (80-100); Monocytes Absolute Auto 700 /uL (0-900); Monocytes Percent Auto 6.1 % (3-14); Neutrophils Absolute Auto 5900 /uL (1500-7000); Neutrophils Percent Auto 49.8 % (50-75); Platelet Count 247 X10^3/uL (150-400); Red Blood Cell Count 3.12 X10^6/uL (4.0-5.2); Red Cell Distribution Width 15.1 % (11.6-14.8); White Blood Cell Count 11.8 X10^3/uL (4.5-11.0)
--- NOTE | 2018-07-22 11:42 | P.DS_ITS ---
Discharge Providers Date of admission: 07/20/18 20:50 Discharge Date: 07/22/18 Primary care physician: Naida Stokes MD Consults: 07/21/18 19:06 Consult to Steaming Machine Operator Routine Comment: Discharge provider: Naida Stokes MD Summary Date Patient Seen: 07/22/18 Time Patient Seen: 13:00 Procedures: Spontaneous vaginal delivery Hospital Course: The pt was admitted in active labor. She received an epidural for pain control. She progressed to complete and delivered a viable baby girl at 12:00 a.m. on 07/21/2018. The patient did have heavy vaginal bleeding immediately after delivery in due to uterine atony received a total of 20 units of Pitocin in addition to Methergine. Her bleeding was then adequately controlled. , there were no complications. At the time of discharge the patient was voiding, ambulating, passing flatus without difficulty. Her lochia was decreasing appropriately. She is breast-feeding with good latch. Her pain was adequately controlled. She will follow up in 6 weeks for her appointment. She plans on a Nexplanon for control. Peripartum Data Delivery Method: Natural Vaginal Laceration description: None Episiotomy description: None Procedures: Spontaneous vaginal delivery complications: none 1: Gender: Female Disposition of : home Status at Discharge Cognitive/behavioral status at discharge: oriented Functional status at discharge: independent ambulation Overall status at discharge: patient is progressing back to baseline Time Spent with Patient Total time spent providing and/or coordinating discharge services: Greater than 30 minutes Objective Labs Result Diagrams: 07/20/18 21:30 Discharge Plan Discharge Plan Patient Disposition: Home Discharge Med Rec/Prescriptions Prescriptions: New docusate sodium 250 mg Capsule 250 mg PO DAILY Qty: 30 RF: 0 Ixe-Y-Hxyaap Cream 1 applic topical PRN PRN (Reason: Tenderness) Qty: 15 RF: 0 ferrous gluconate 324 mg (38 mg iron) Tablet 324 mg PO DAILY Qty: 30 RF: 0 Continued ondansetron 4 mg tablet,disintegrating 4 mg PO Q6-8H PRN (Reason: nausea and vomiting) Qty: 30 RF: 0 acetaminophen 325 mg capsule 325 mg PO Q6H PRNRF: 0 prenat.vits,marlene,qqx-ypau-amidu tablet 1 tab PO DAILY RF: 0 ibuprofen 800 MG tablet 800 mg PO TIDP PRN (Reason: Pain, Moderate) RF: 0 Follow up/Referrals: Naida Stokes MD [Primary Care Provider] - 6 Weeks Provider Discharge Instructions Diet: Regular Skin/Wound/Dressing Care Report to your healthcare provider any signs of infection, such as:: chills, fever, increased pain and unusual drainage Visit Report/Discharge Packet Instructions: DI for Labor and Delivery, Vaginal Visit Report Forms: Stroke Signs & Symptoms Discharge Data Primary Care Provider: Naida Stokes Attending Provider: Naida Stokes Admit Date/Time: 07/20/18 20:50
[2018-07-22 13:40] VITALS: BP 130/75; PULSE 68; RESP 18; TEMP 36.5
== END 2018-07-22 14:00 | disposition home or self-care (01) | DRG 560 ==
PROVIDERS: Admitting Provider Family Medicine; Family Provider Family Medicine; PCP Family Medicine; Visit Provider Family Medicine
DX: O60.14X0 Preterm labor third trimester with preterm delivery third trimester, not applicable or unspecified (principal); O72.1 Other immediate postpartum hemorrhage; Z37.0 Single live birth; Z3A.38 38 weeks gestation of pregnancy
CPT/HCPCS: 01967; 36415; 59025; 59050; 59409; 80305; 85025; 86850; 86900; 86901; G0378; G0379; J2210; J2590; J3010

== ENCOUNTER 2019-12-14 20:06 | Emergency (ER) | payer OTHER, MEDICAID, SELFPAY ==
[2019-12-14 20:06] VITALS: BP 133/77; PULSE 72; RESP 16; TEMP 37.2; O2SAT 98; BMI 22.5
[2019-12-14 20:55] LABS: Add Manual Diff / Slide Review NO; Basophils Absolute Auto 0 /uL (0-100); Basophils Percent Auto 0.5 % (0-2); Eosinophils Absolute Auto 100 /uL (0-450); Eosinophils Percent Auto 1.2 % (2-4); Hematocrit 39.4 % (36-46); Hemoglobin 13.2 g/dL (12.0-16.0); Lymphocytes Absolute Auto 2700 /uL (1100-4500); Lymphocytes Percent Auto 27.4 % (25-40); Mean Corpuscular HGB Conc 33.5 % (30-36); Mean Corpuscular Hemoglobin 31.6 PG (26-34); Mean Corpuscular Volume 94.5 fL (80-100); Monocytes Absolute Auto 700 /uL (0-900); Monocytes Percent Auto 6.5 % (3-14); Neutrophils Absolute Auto 6500 /uL (1500-7000); Neutrophils Percent Auto 64.4 % (50-75); Platelet Count 224 X10^3/uL (150-400); Red Blood Cell Count 4.17 X10^6/uL (4.0-5.2); Red Cell Distribution Width 13.4 % (11.6-14.8)
--- NOTE | 2019-12-14 20:56 | ED.GENADULT ---
HPI - General Adult General Chief complaint: Urogenital-Female Stated complaint: LOWER PELVIC PAIN LEFT SIDE Time Seen by Provider: 12/14/19 20:29 Source: patient Mode of arrival: Ambulatory Limitations: no limitations History of Present Illness HPI narrative: 24-year-old female here for evaluation of left-sided adnexa pain. She states the symptoms started this morning shortly after she woke up. They worsened throughout the day and specifically worsened over the past 4 hours. Took some ibuprofen prior to arrival without any improvement. Has had some nausea but no vomiting. No urinary symptoms. No vaginal bleeding. No constipation or diarrhea. She states that she finished her last menstrual cycle approximately 2 weeks ago. She is not on control. No concerns about STDs. Has had ovarian cysts in the past. Has had laparoscopies to evaluate for the cyst. Related Data Previous Rx's Medication Instructions Recorded ibuprofen 800 mg tablet 800 mg PO Q8H #60 tab 03/30/19 albuterol sulfate 90 mcg/actuation 2 puff INHALATION Q4-6H PRN #18 08/11/19 aerosol inhaler gram Allergies Allergy/AdvReac Type Severity Reaction Status Date / Time hydromorphone [From DILAUDID] Allergy Severe APNEA Verified 11/04/19 11:57 tramadol [TRAMADOL] Allergy Unknown Verified 11/04/19 11:57 Review of Systems Constitutional Constitutional: Denies fever(s) and Denies headache(s) ENT Ears, Nose, Mouth, and Throat: Denies headache(s) Cardiovascular Cardiovascular: Denies chest pain and Denies dyspnea Respiratory Respiratory: Denies dyspnea Gastrointestinal Gastrointestinal: Reports abdominal pain (Left-sided adnexal pain), Denies change in bowel habits, Reports nausea and Denies vomiting Genitourinary Genitourinary: Denies dysuria and Denies urinary urgency Genitourinary: Denies dysuria, Reports pelvic pain and Denies urinary urgency Musculoskeletal Musculoskeletal: Denies arthralgias, Denies back pain and Denies myalgias Integumentary/Breasts Skin/Breast: Denies rash Neurologic Neurologic: Denies behavioral changes and Denies headache(s) Psychiatric Psychiatric: Denies behavioral changes Hematologic/Lymphatic Hematologic/Lymphatic: Denies easy bleeding and Denies easy bruising Allergic/Immunologic Allergic/Immunologic: Denies urticaria Patient History Medical History GERD (gastroesophageal reflux disease) (Inactive) Lumbar strain (Inactive) Ovarian cyst (Inactive) Thoracic back pain (Inactive) Social History Smoking Status: Never smoker Smoking Status: Never smoker alcohol intake frequency: 0-2 drinks per day Substance Use Type: marijuana Exam Initial Vital Signs Initial Vital Signs: Vital Signs Temperature 98.9 F 12/14/19 20:06 Pulse Rate 72 12/14/19 20:06 Respiratory Rate 16 12/14/19 20:06 Blood Pressure 133/77 12/14/19 20:06 Pulse Oximetry 98 12/14/19 20:06 Const General: cooperative, healthy appearing and comfortable Limitations: mental status not altered HENMT Head: normal to inspection and normocephalic Resp Effort & Inspection: normal respiratory effort Auscultation: clear to auscultation bilaterally Cardio Rate: regular rate Rhythm: regular rhythm GI Inspection: non-distended Palpation: soft, No firm and No tender Other: Left-sided adnexal pain Back/Spine/Pelvis Back: No CVA tenderness Skin Lesions: no lesions Rashes: no rashes Neuro General: patient alert, patient awake and patient oriented x3 Cognition: normal cognition Speech: speech normal Extrem General: normal to inspection and capillary refill normal Psych Appearance: grossly normal and well kempt Course Orders Ordered: ED Orders 12/14/19 20:45 Complete Blood Count AUTO DIFF Stat Comprehensive Metabolic Panel Stat Lipase Stat Partial Thromboplastin Time Stat Prothrombin Time INR Stat 12/14/19 20:56 US pelvic complete Stat Discontinued Medications Acetaminophen/Codeine Phosphate (Tylenol #3 Prepack) 1 bottle MISC SEEINSTR ONE Stop: 12/14/19 22:29 Last Admin: 12/14/19 22:34 Dose: 1 bottle Documented by: FANY Ketorolac Tromethamine (Toradol) 30 mg IV NOW ONE Stop: 12/14/19 20:57 Last Admin: 12/14/19 21:01 Dose: 30 mg Documented by: RBI Vital Signs Vital signs: Vital Signs - 8 hr 12/14/19 20:06 12/14/19 22:35 Temperature 98.9 F Pulse Rate 72 63 Respiratory Rate 16 16 Blood Pressure 133/77 109/67 Pulse Oximetry 98 100 Medical Decision Making Lab Data Lab results reviewed: Yes I reviewed the patient's lab results. Result diagrams: 12/14/19 20:45 12/14/19 20:45 Labs: Lab Results 12/14/19 12/14/19 12/14/19 Range/Units 20:45 20:45 20:45 WBC 10.0 (4.5-11.0) X10^3/uL RBC 4.17 (4.0-5.2) X10^6/uL Hgb 13.2 (12.0-16.0) g/dL Hct 39.4 (36-46) % MCV 94.5 (80-100) fL MCH 31.6 (26-34) PG MCHC 33.5 (30-36) % RDW 13.4 (11.6-14.8) % Plt Count 224 (150-400) X10^3/uL Neut % (Auto) 64.4 (50-75) % Lymph % (Auto) 27.4 (25-40) % [place] % (Auto) 6.5 (3-14) % Eos % (Auto) 1.2 L (2-4) % Baso % (Auto) 0.5 (0-2) % Neut # (Auto) 6500 (6863-2052) /uL Lymph # (Auto) 2700 (7807-3129) /uL [place] # (Auto) 700 (0-900) /uL Eos # (Auto) 100 (0-450) /uL Baso # (Auto) 0 (0-100) /uL PT 12.9 H (10.1-12.7) SECONDS INR 1.1 (0.9-1.3) APTT 35 (26.4-36.2) SECONDS Sodium 140 (137-145) mmol/L Potassium 4.0 (3.4-5.1) mmol/L Chloride 105 (98-107) mmol/L Carbon Dioxide 31 (22-32) mmol/L BUN 16 (7-17) mg/dL Creatinine 0.73 (0.52-1.04) mg/dL Estimated GFR > 60.0 (>60) mL/min BUN/Creatinine Ratio 21.9 (6-22) Glucose 87 (70-100) mg/dL Calcium 9.0 (8.4-10.2) mg/dL Total Bilirubin 0.3 (0.2-1.3) mg/dL AST 23 (14-36) IU/L ALT 12 (<35) IU/L Alkaline Phosphatase 85 (38-126) U/L Total Protein 6.8 (6.3-8.2) g/dL Albumin 3.8 (3.5-5.0) g/dL Globulin 3.0 (1.7-4.1) g/dL Albumin/Globulin Ratio 1.3 (1.0-2.8) Lipase 41 (23-300) U/L Point of Care Testing Test Results Negative Urine Dip Bedside Urine Glucose 100 mg/dl Bedside Urine Bilirubin - Negative Bedside Urine Ketone - Negative Urine Specific [place] 1.025 Bedside Urine Occult Blood - Negative Bedside Urine pH 6.0 Bedside Urine Protein - Negative Bedside Urine Urobilinogen - Negative Bedside Urine Nitrite - Negative Bedside Urine Leukocytes - Negative Esterase Point of care testing: Point of Care Testing Test Results Negative Urine Dip Bedside Urine Glucose 100 mg/dl Bedside Urine Bilirubin - Negative Bedside Urine Ketone - Negative Urine Specific [place] 1.025 Bedside Urine Occult Blood - Negative Bedside Urine pH 6.0 Bedside Urine Protein - Negative Bedside Urine Urobilinogen - Negative Bedside Urine Nitrite - Negative Bedside Urine Leukocytes - Negative Esterase Imaging Data US - DELI ASSOCIATE: Radiologist's Impression: [place] [address] Ultrasound Report Signed Patient: Rajendra Johnson [facility]#: [id number] : 1995Acct:[id number] Age/Sex: 24 / FDate of Service: 12/14/19 Loc: ED Accession Number: [id number] Procedure: US pelvic complete Ordering Provider: Seth Da Silva D.O. PROCEDURE: US PELVIC COMPLETE INDICATIONS: L adnexa pain eval for ovary pathology TECHNIQUE: Real-time scanning was performed of the pelvic organs, with image documentation. Additional endovaginal scanning was necessary due to incomplete visualization of the adnexal and endometrial structures by transabdominal scanning. COMPARISON: [facility], US PELVIC COMPLETE, 08/28/2017, 15:11. FINDINGS: Transabdominal scanning: Limited scanning through the kidneys shows no hydronephrosis. No pathologic free abdominal or pelvic fluid. Endovaginal scanning: Uterus: Uterus is normal in size at 9.7 x 4.3 x 5.1 cm. The endometrium measures 9 mm in combined thickness. Ovaries: Right ovary measures 3.1 x 2.0 x 1.8 cm. Left ovary measures 4.1 x 1.9 x 1.8 cm. Vascular flow is noted in the bilateral ovaries. No sonographic evidence for torsion noted. No suspicious ovarian or adnexal mass lesions. IMPRESSION: Pelvic ultrasound without acute sonographic abnormalities. Specifically, no sonographic evidence for ovarian torsion. Dictated by: Vishal Dempsey M.D. on 12/14/2019 at 22:03 Approved by: Vishal Dempsey M.D. on 12/14/2019 at 22:04 [facility] Narrative Medical decision making narrative: Ultrasound shows no acute left-sided ovarian pathology. Her labs are unremarkable, urinalysis not consistent with an infection. test is negative. Had a discussion with her regarding potential further workup to include a CT scan however decision was made to hold on any further radiologic studies for now. Patient was given strict return precautions. She does understand the lack of a definitive etiology and the potential for other issues without doing the CT scan. Patient is longterm through her menstrual cycle. We discussed the potential for mittelschmerz. Patient expressed understanding. If patient does return with continue/worsening pain I would consider obtaining a CT scan for further evaluation. Discharge Plan Departure Patient Disposition: Home Clinical Impression: Adnexal pain Discharge Date/Time: 12/14/19 22:39 Instructions: DI for Pelvic Pain Activity Restrictions/Additional Instructions: Take the medications as directed. Be sure to contact your primary doctor tomorrow to discuss your exam today. As per discussion we will hold on a CT scan for now however if her symptoms change or worsen or you develop any new symptoms please return to the emergency department for further evaluation. Prescriptions: No Action ibuprofen 800 mg tablet 800 mg PO Q8H Qty: 60 RF: 0 albuterol sulfate 90 mcg/actuation HFA aerosol inhaler 2 puff INHALATION Q4-6H PRN (Reason: shortness of breath or wheezing) Qty: 18 RF: 3 Referrals: Naida Stokes MD [Primary Care Provider] -
[2019-12-14] MEDS: KETOROLAC 60 MG/2 ML VIAL 30 MG IV (21:01)
[2019-12-14 21:02] LABS: INR 1.1 (0.9-1.3); Prothrombin Time 12.9 SECONDS (10.1-12.7)
[2019-12-14 21:05] LABS: PTT Partial Thromboplastin Tim 35 SECONDS (26.4-36.2)
[2019-12-14 21:12] LABS: Alanine Aminotransferase 12 IU/L (<35); Albumin 3.8 g/dL (3.5-5.0); Albumin Globulin Ratio 1.3 (1.0-2.8); Alkaline Phosphatase 85 U/L (38-126); Aspartate Aminotransferase 23 IU/L (14-36); BUN Creatinine Ratio 21.9 (6-22); Bilirubin Total 0.3 mg/dL (0.2-1.3); Blood Urea Nitrogen 16 mg/dL (7-17); Carbon Dioxide 31 mmol/L (22-32); Chloride 105 mmol/L (98-107); Estimated Glomerular Filt Rate > 60.0 mL/min (>60); Glucose 87 mg/dL (70-100); HEMOLYSIS 19 (0-50); Lipase 41 U/L (23-300); Sodium 140 mmol/L (137-145); Total Protein 6.8 g/dL (6.3-8.2)
[2019-12-14] MEDS: CODEINE/APAP 30/300 PREPACK 1 BOTTLE MISC (22:34)
[2019-12-14 22:35] VITALS: BP 109/67; PULSE 63; RESP 16; O2SAT 100
== END 2019-12-14 22:39 | disposition home or self-care (01) ==
PROVIDERS: Emergency Provider Emergency Medicine; Family Provider Family Medicine; PCP Family Medicine
DX: R10.2 Pelvic and perineal pain (principal); R11.0 Nausea; Z87.42 Personal history of other diseases of the female genital tract
CPT/HCPCS: 36415; 76856; 80053; 81003; 81025; 83690; 85025; 85610; 85730; 96374; 99284; J1885

== ENCOUNTER 2020-02-06 11:24 | Emergency (ER) | payer OTHER, MEDICAID, SELFPAY ==
[2020-02-06 11:33] VITALS: BP 119/65; PULSE 56; RESP 14; TEMP 36.9; O2SAT 100; BMI 22.5
[2020-02-06 11:50] VITALS: BP 119/65; PULSE 84; RESP 14; O2SAT 100
--- NOTE | 2020-02-06 11:55 | ED_ITS ---
HPI - General Adult General Chief complaint: Abdominal Pain Stated complaint: ABDOMINAL PAIN STARTED 2 DAYS AGO Time Seen by Provider: 02/06/20 11:39 Source: patient Mode of arrival: Ambulatory Limitations: no limitations History of Present Illness HPI narrative: 24-year-old female who at the end of last month underwent a elective medical . She states that for the past couple days she has had bilateral with right being greater than left lower abdominal pain. She is having some vaginal spotting. No urinary symptoms. She has had ovarian cysts in the past and she thinks that this is potentially an ovarian cyst. Went to the walk-in clinic and was sent to the emergency department for evaluation. Related Data Previous Rx's Medication Instructions Recorded ibuprofen 800 mg tablet 800 mg PO Q8H #60 tab 03/30/19 albuterol sulfate 90 mcg/actuation 2 puff INHALATION Q4-6H PRN #18 08/11/19 aerosol inhaler gram ondansetron 4 mg disintegrating 4 mg PO Q6-8H PRN #30 tab 01/12/20 tablet hydrocodone 5 mg-acetaminophen 300 2 tab PO Q4-6H PRN #20 tab 02/06/20 mg tablet Allergies Allergy/AdvReac Type Severity Reaction Status Date / Time hydromorphone [From DILAUDID] Allergy Severe APNEA Verified 02/06/20 11:37 tramadol [TRAMADOL] Allergy Unknown Verified 02/06/20 11:37 Review of Systems Constitutional Constitutional: Denies fever(s) Cardiovascular Cardiovascular: Denies chest pain and Denies dyspnea Respiratory Respiratory: Denies dyspnea Gastrointestinal Gastrointestinal: Reports abdominal pain, Denies nausea and Denies vomiting Genitourinary Genitourinary: Reports dysuria Genitourinary: Reports dysuria and Reports vaginal discharge (Spotting) Musculoskeletal Musculoskeletal: Denies arthralgias and Denies myalgias Integumentary/Breasts Skin/Breast: Denies rash Neurologic Neurologic: Denies behavioral changes Psychiatric Psychiatric: Denies behavioral changes Hematologic/Lymphatic Hematologic/Lymphatic: Denies easy bleeding and Denies easy bruising Allergic/Immunologic Allergic/Immunologic: Denies urticaria Patient History Medical History GERD (gastroesophageal reflux disease) (Inactive) Lumbar strain (Inactive) Ovarian cyst (Inactive) Thoracic back pain (Inactive) Social History Smoking Status: Never smoker Smoking Status: Never smoker alcohol intake frequency: 0-2 drinks per day Substance Use Type: marijuana Exam Initial Vital Signs Initial Vital Signs: Vital Signs Temperature 98.4 F 02/06/20 11:33 Pulse Rate 56 L 02/06/20 11:33 Respiratory Rate 14 02/06/20 11:33 Blood Pressure 119/65 02/06/20 11:33 Pulse Oximetry 100 02/06/20 11:33 Const General: cooperative and well developed Limitations: mental status not altered HENAK Head: normal to inspection and normocephalic Resp Effort & Inspection: normal respiratory effort Auscultation: clear to auscultation bilaterally Cardio Rate: regular rate Rhythm: regular rhythm GI Inspection: non-distended Palpation: soft, No firm and tender (Bilateral lower abdomen) Back/Spine/Pelvis Back: No CVA tenderness Skin Lesions: no lesions Rashes: no rashes Neuro General: patient alert and patient awake Cognition: normal cognition Speech: speech normal Extrem General: normal to inspection and capillary refill normal Psych Appearance: grossly normal and well kempt Course Orders Ordered: ED Orders 02/06/20 11:35 ABO RH Type Stat Complete Blood Count AUTO DIFF Stat Comprehensive Metabolic Panel Stat HCG Quantitative /Beta subunit Stat Lipase Stat Test Serum,Qual Stat 02/06/20 12:35 pelvic complete Stat 02/06/20 12:47 Urine Microscopic Stat 02/06/20 13:13 Consult to Obstetrics Stat Discontinued Medications Ketorolac Tromethamine (Toradol) 30 mg IV NOW ONE Stop: 02/06/20 12:36 Last Admin: 02/06/20 12:40 Dose: 30 mg Documented by: GRIFFIN Vital Signs Vital signs: Vital Signs - 8 hr 02/06/20 11:33 02/06/20 11:50 02/06/20 12:49 Temperature 98.4 F Pulse Rate 56 L 84 54 L Respiratory Rate 14 14 16 Blood Pressure 119/65 119/65 115/72 Pulse Oximetry 100 100 100 02/06/20 13:24 Temperature Pulse Rate 62 Respiratory Rate 14 Blood Pressure 129/79 Pulse Oximetry 100 Medical Decision Making Lab Data Lab results reviewed: Yes I reviewed the patient's lab results. Result diagrams: 02/06/20 11:35 02/06/20 11:35 Labs: Lab Results 02/06/20 02/06/20 02/06/20 Range/Units 11:35 11:35 11:35 WBC 7.6 (4.5-11.0) X10^3/uL RBC 3.94 L (4.0-5.2) X10^6/uL Hgb 12.2 (12.0-16.0) g/dL Hct 36.8 (36-46) % MCV 93.4 (80-100) fL MCH 31.1 (26-34) PG MCHC 33.3 (30-36) % RDW 13.4 (11.6-14.8) % Plt Count 240 (150-400) X10^3/uL Neut % (Auto) 56.5 (50-75) % Lymph % (Auto) 36.1 (25-40) % [place] % (Auto) 6.0 (3-14) % Eos % (Auto) 0.8 L (2-4) % Baso % (Auto) 0.6 (0-2) % Neut # (Auto) 4300 (7802-2153) /uL Lymph # (Auto) 2800 (1043-4059) /uL [place] # (Auto) 500 (0-900) /uL Eos # (Auto) 100 (0-450) /uL Baso # (Auto) 0 (0-100) /uL Sodium 137 (137-145) mmol/L Potassium 4.1 (3.4-5.1) mmol/L Chloride 106 (98-107) mmol/L Carbon Dioxide 26 (22-32) mmol/L BUN 16 (7-17) mg/dL Creatinine 0.57 (0.52-1.04) mg/dL Estimated GFR > 60.0 (>60) mL/min BUN/Creatinine Ratio 28.1 H (6-22) Glucose 81 (70-100) mg/dL Calcium 9.0 (8.4-10.2) mg/dL Total Bilirubin 0.4 (0.2-1.3) mg/dL AST 33 (14-36) IU/L ALT 19 (<35) IU/L Alkaline Phosphatase 98 (38-126) U/L Total Protein 7.5 (6.3-8.2) g/dL Albumin 4.3 (3.5-5.0) g/dL Globulin 3.2 (1.7-4.1) g/dL Albumin/Globulin Ratio 1.3 (1.0-2.8) Lipase 42 (23-300) U/L HCG, Quant mIU/mL Serum , Qual Positive H (Negative) Blood Type 02/06/20 02/06/20 Range/Units 11:35 11:35 WBC (4.5-11.0) X10^3/uL RBC (4.0-5.2) X10^6/uL Hgb (12.0-16.0) g/dL Hct (36-46) % MCV (80-100) fL MCH (26-34) PG MCHC (30-36) % RDW (11.6-14.8) % Plt Count (150-400) X10^3/uL Neut % (Auto) (50-75) % Lymph % (Auto) (25-40) % [place] % (Auto) (3-14) % Eos % (Auto) (2-4) % Baso % (Auto) (0-2) % Neut # (Auto) (2600-1133) /uL Lymph # (Auto) (2519-2128) /uL [place] # (Auto) (0-900) /uL Eos # (Auto) (0-450) /uL Baso # (Auto) (0-100) /uL Sodium (137-145) mmol/L Potassium (3.4-5.1) mmol/L Chloride (98-107) mmol/L Carbon Dioxide (22-32) mmol/L BUN (7-17) mg/dL Creatinine (0.52-1.04) mg/dL Estimated GFR (>60) mL/min BUN/Creatinine Ratio (6-22) Glucose (70-100) mg/dL Calcium (8.4-10.2) mg/dL Total Bilirubin (0.2-1.3) mg/dL AST (14-36) IU/L ALT (<35) IU/L Alkaline Phosphatase (38-126) U/L Total Protein (6.3-8.2) g/dL Albumin (3.5-5.0) g/dL Globulin (1.7-4.1) g/dL Albumin/Globulin Ratio (1.0-2.8) Lipase (23-300) U/L HCG, Quant 208.4 mIU/mL Serum , Qual (Negative) Blood Type A Positive Urine Dip Bedside Urine Glucose Negative Bedside Urine Bilirubin - Negative Bedside Urine Ketone - Negative Urine Specific [place] 1.025 Bedside Urine Occult Blood +++ Bedside Urine pH 6.0 Bedside Urine Protein - Negative Bedside Urine Urobilinogen - Negative Bedside Urine Nitrite - Negative Bedside Urine Leukocytes - Negative Esterase Point of care testing: Urine Dip Bedside Urine Glucose Negative Bedside Urine Bilirubin - Negative Bedside Urine Ketone - Negative Urine Specific [place] 1.025 Bedside Urine Occult Blood +++ Bedside Urine pH 6.0 Bedside Urine Protein - Negative Bedside Urine Urobilinogen - Negative Bedside Urine Nitrite - Negative Bedside Urine Leukocytes - Negative Esterase Imaging Data US - OB: Radiologist's Impression: [address] [address] Ultrasound Report Signed Patient: Rajendra Johnson MMR#: [id number] : 1995Acct:[id number] Age/Sex: 24 / FDate of Service: 02/06/20 Loc: ED Accession Number: [id number] Procedure: US pelvic complete Ordering Provider: Seth Da Silva D.O. PROCEDURE: US PELVIC COMPLETE INDICATIONS: PAIN POST MEDICAL TECHNIQUE: Real-time scanning was performed of the pelvic organs, with image documentation. Additional endovaginal scanning was necessary due to incomplete visualization of the adnexal and endometrial structures by transabdominal scanning. COMPARISON: [facility], , US PELVIC COMPLETE, 12/14/2019, 21:23. FINDINGS: Transabdominal scanning: Limited scanning through the kidneys shows no hydronephrosis. No pathologic free abdominal or pelvic fluid. Endovaginal scanning: Uterus: Uterus is normal in size at 7.9 x 4.8 cm. The endometrium is thickened and heterogeneous measuring 20 mm in combined thickness. There is area of increased vascularity within the endometrial cavity with small amount of fluid. Uterine echotexture is within normal limits. Ovaries: Right ovary measures 4.4 x 2.5 x 2.5 cm. Complicated right ovarian cyst with internal septations and echogenic debris measuring 3.1 x 2.3 x 2.3 cm. Left ovary measures 2.6 x 2.4 x 2.5 cm. Simple 2.4 cm left ovarian cyst is noted. IMPRESSION: 1. Thickened, heterogeneous endometrium with areas of increased endometrial vascularity possibly representing retained products of conception. 2. Likely right ovarian hemorrhagic cyst. No specific follow-up needed. 3. Simple left ovarian cyst. Dictated by: Vishal Dempsey M.D. on 02/06/2020 at 11:46 Approved by: Vishal Dempsey M.D. on 02/06/2020 at 11:51 ECG Data Attestation: I personally reviewed and interpreted this ECG as follows: Prior ECG tracings: not available for review Interpretation: Sinus rhythm Ventricular rate of 57 Normal axis Normal QRS Normal QTC No ST T wave changes MDM Narrative Medical decision making narrative: Patient does have a relatively benign exam. Her test is positive. Blood type is Rh positive. Ultrasound shows what looks like retained products of conception. Patient was seen by Dr. Adame with OBGYN in the emergency department. After her discussion with territory representative decision was made to do side attack which she was given here in the ER by Dr adame. We will hold on surgical intervention for now. Also considered other etiologies such as urinary tract infection/pyelonephritis however her urinalysis is negative for this. Also considered other etiologies such as appendicitis however given her findings on the ultrasound in her exam today feel like this is unlikely given the current setting. Patient was given return precautions and follow-up instructions. She expressed understanding and agreement. Discharge Plan Departure Patient Disposition: Home Clinical Impression: Incomplete miscarriage Instructions: Acute Abdominal Pain Activity Restrictions/Additional Instructions: Follow all of the instructions given to you by Dr. Adame with OBGYN. If your pain worsens or you develop fevers or worsening bleeding please return to the emergency department for further evaluation. Prescriptions: No Action ibuprofen 800 mg tablet 800 mg PO Q8H Qty: 60 RF: 0 albuterol sulfate 90 mcg/actuation HFA aerosol inhaler 2 puff INHALATION Q4-6H PRN (Reason: shortness of breath or wheezing) Qty: 18 RF: 3 ondansetron 4 mg tablet,disintegrating 4 mg PO Q6-8H PRN (Reason: nausea and vomiting) Qty: 30 RF: 0 hydrocodone-acetaminophen 5-300 mg tablet 2 tab PO Q4-6H PRN (Reason: pain) Qty: 20 RF: 0 Referrals: Naida Stokes MD [Primary Care Provider] -
--- NOTE | 2020-02-06 11:55 | PC.NURSE ---
patient took a pill to carry out an on Jan 17. Since then she has been spotting. She recently started having a headache that comes on at evening time around 1800. She is not having shortness of breathe, dizziness, or lightheadedness but did state that when she has a headache, the pain causes dizziness.
[2020-02-06 11:59] LABS: Add Manual Diff / Slide Review NO; Basophils Absolute Auto 0 /uL (0-100); Basophils Percent Auto 0.6 % (0-2); Eosinophils Absolute Auto 100 /uL (0-450); Eosinophils Percent Auto 0.8 % (2-4); Hematocrit 36.8 % (36-46); Hemoglobin 12.2 g/dL (12.0-16.0); Lymphocytes Absolute Auto 2800 /uL (1100-4500); Lymphocytes Percent Auto 36.1 % (25-40); Mean Corpuscular HGB Conc 33.3 % (30-36); Mean Corpuscular Hemoglobin 31.1 PG (26-34); Mean Corpuscular Volume 93.4 fL (80-100); Monocytes Absolute Auto 500 /uL (0-900); Neutrophils Absolute Auto 4300 /uL (1500-7000); Neutrophils Percent Auto 56.5 % (50-75); Platelet Count 240 X10^3/uL (150-400); Red Blood Cell Count 3.94 X10^6/uL (4.0-5.2); Red Cell Distribution Width 13.4 % (11.6-14.8); White Blood Cell Count 7.6 X10^3/uL (4.5-11.0)
[2020-02-06 12:04] LABS: Alanine Aminotransferase 19 IU/L (<35); Albumin 4.3 g/dL (3.5-5.0); Albumin Globulin Ratio 1.3 (1.0-2.8); Alkaline Phosphatase 98 U/L (38-126); Aspartate Aminotransferase 33 IU/L (14-36); BUN Creatinine Ratio 28.1 (6-22); Bilirubin Total 0.4 mg/dL (0.2-1.3); Blood Urea Nitrogen 16 mg/dL (7-17); Carbon Dioxide 26 mmol/L (22-32); Chloride 106 mmol/L (98-107); Estimated Glomerular Filt Rate > 60.0 mL/min (>60); Globulin 3.2 g/dL (1.7-4.1); Glucose 81 mg/dL (70-100); HEMOLYSIS 18 (0-50); Lipase 42 U/L (23-300); Potassium 4.1 mmol/L (3.4-5.1); Sodium 137 mmol/L (137-145); Total Protein 7.5 g/dL (6.3-8.2)
[2020-02-06 12:16] LABS: Pregnancy Test Serum,Qual Positive (Negative)
--- NOTE | 2020-02-06 12:35 | DI.US.S_ITS ---
PROCEDURE: US PELVIC COMPLETE INDICATIONS: PAIN POST MEDICAL TECHNIQUE: Real-time scanning was performed of the pelvic organs, with image documentation. Additional endovaginal scanning was necessary due to incomplete visualization of the adnexal and endometrial structures by transabdominal scanning. COMPARISON: [facility], , US PELVIC COMPLETE, 12/14/2019, 21:23. FINDINGS: Transabdominal scanning: Limited scanning through the kidneys shows no hydronephrosis. No pathologic free abdominal or pelvic fluid. Endovaginal scanning: Uterus: Uterus is normal in size at 7.9 x 4.8 cm. The endometrium is thickened and heterogeneous measuring 20 mm in combined thickness. There is area of increased vascularity within the endometrial cavity with small amount of fluid. Uterine echotexture is within normal limits. Ovaries: Right ovary measures 4.4 x 2.5 x 2.5 cm. Complicated right ovarian cyst with internal septations and echogenic debris measuring 3.1 x 2.3 x 2.3 cm. Left ovary measures 2.6 x 2.4 x 2.5 cm. Simple 2.4 cm left ovarian cyst is noted. IMPRESSION: 1. Thickened, heterogeneous endometrium with areas of increased endometrial vascularity possibly representing retained products of conception. 2. Likely right ovarian hemorrhagic cyst. No specific follow-up needed. 3. Simple left ovarian cyst. Dictated by: Vishal Dempsey M.D. on 02/06/2020 at 11:46 Approved by: Vishal Dempsey M.D. on 02/06/2020 at 11:51
[2020-02-06] MEDS: KETOROLAC 60 MG/2 ML VIAL 30 MG IV (12:40)
[2020-02-06 12:49] VITALS: BP 115/72; PULSE 54; RESP 16; O2SAT 100
[2020-02-06 13:00] LABS: HCG Quantitative /Beta subunit 208.4 mIU/mL
[2020-02-06 13:24] VITALS: BP 129/79; PULSE 62; RESP 14; O2SAT 100
--- NOTE | 2020-02-06 13:50 | PM.CN ---
History of Present Illness Consult details Date Patient Seen: 02/06/20 Time Patient Seen: 13:50 Chief complaint: ABDOMINAL PAIN STARTED 2 DAYS AGO Reason for consult: Retained products of conception Requesting provider: Seth Da Silva Narrative: Patient is a 24-year-old 3. To who underwent elective AB on 01/18/2020 by oral Cytotec. Patient had 3 days of heavier bleeding than the bleeding decreased. She began having increasing lower abdominal discomfort right greater than left. Patient states she did have a history of complications of retained placenta fragment after of her daughter. She ended up having significant pain and treatment for retained products at that time. She was reassured using oral Cytotec was okay for termination of this . The patient denies any fevers. She does have a history of ovarian cysts which she was convinced her pain was from. Meds Home Medications and Allergies Home Medications Medication Instructions Recorded Confirmed Type ibuprofen 800 mg tablet 800 mg PO Q8H #60 tab 03/30/19 11/04/19 Rx albuterol sulfate 90 mcg/actuation 2 puff INHALATION Q4-6H PRN #18 08/11/19 11/04/19 Rx aerosol inhaler gram ondansetron 4 mg disintegrating 4 mg PO Q6-8H PRN #30 tab 01/12/20 Rx tablet hydrocodone 5 mg-acetaminophen 300 2 tab PO Q4-6H PRN #20 tab 02/06/20 Rx mg tablet Allergies Allergy/AdvReac Type Severity Reaction Status Date / Time hydromorphone [From DILAUDID] Allergy Severe APNEA Verified 02/06/20 11:37 tramadol [TRAMADOL] Allergy Unknown Verified 02/06/20 11:37 Review of Systems Review of Systems Narrative: Patient with lower abdominal pain right greater than left but no nausea or vomiting. No fevers. Spotting but no heavy bleeding. Exam Vital Signs (past 8 hours): - 02/06/20 11:33 02/06/20 11:50 02/06/20 12:49 Temperature 98.4 F Pulse Rate 56 L 84 54 L Respiratory Rate 14 14 16 Blood Pressure 119/65 119/65 115/72 Pulse Oximetry 100 100 100 02/06/20 13:24 Temperature Pulse Rate 62 Respiratory Rate 14 Blood Pressure 129/79 Pulse Oximetry 100 Oxygen Delivery Method Room Air Narrative Exam Narrative: Patient on arrival to the hospital has been stable. Her HCG level 208. She is Rh positive. The ultrasound showed slightly thickened endometrium with probable retained products of conception and what appears to be a right hemorrhagic ovarian cyst. On physical exam the patient's vital signs are stable. The patient's abdomen is soft with minimal tenderness right greater than left. No rebound. Patient is having minimal bleeding. Extremities without tenderness or edema. Discussed options for treatment of retained products of conception with the patient they include waiting to see if she passes the tissue on her own, repeating the Cytotec for possible expulsion of the retained products, proceeding with D&C. Patient had her son with her and had eaten within the last 3 hours. After discussion she decided she would proceed with repeating the Cytotec with the possibility of D&C in the future if she does not have resolution of the retained products conception. Patient was given for Cytotec 200 micro g tablets which she placed under tongue to dissolved. A prescription for Vicodin was sent to her pharmacy. She states that despite her allergy to tramadol and Dilaudid she can tolerate the other narcotics. Patient is to return if she has heavy year bleeding, concerns about pain, fevers or any other concerns. She may follow-up with me or her primary provider who prescribed her initial treatment of Cytotec for her elective AB. Objective Labs Result Diagrams: 02/06/20 11:35 02/06/20 11:35 Labs: Laboratory Results - last 24 hr 02/06/20 02/06/20 02/06/20 11:35 11:35 11:35 WBC 7.6 RBC 3.94 L Hgb 12.2 Hct 36.8 MCV 93.4 MCH 31.1 MCHC 33.3 RDW 13.4 Plt Count 240 Neut % (Auto) 56.5 Lymph % (Auto) 36.1 [place] % (Auto) 6.0 Eos % (Auto) 0.8 L Baso % (Auto) 0.6 Neut # (Auto) 4300 Lymph # (Auto) 2800 [place] # (Auto) 500 Eos # (Auto) 100 Baso # (Auto) 0 Sodium 137 Potassium 4.1 Chloride 106 Carbon Dioxide 26 BUN 16 Creatinine 0.57 Estimated GFR > 60.0 BUN/Creatinine Ratio 28.1 H Glucose 81 Calcium 9.0 Total Bilirubin 0.4 AST 33 ALT 19 Alkaline Phosphatase 98 Total Protein 7.5 Albumin 4.3 Globulin 3.2 Albumin/Globulin Ratio 1.3 Lipase 42 HCG, Quant Serum , Qual Positive H Blood Type 02/06/20 02/06/20 11:35 11:35 WBC RBC Hgb Hct MCV MCH MCHC RDW Plt Count Neut % (Auto) Lymph % (Auto) [place] % (Auto) Eos % (Auto) Baso % (Auto) Neut # (Auto) Lymph # (Auto) [place] # (Auto) Eos # (Auto) Baso # (Auto) Sodium Potassium Chloride Carbon Dioxide BUN Creatinine Estimated GFR BUN/Creatinine Ratio Glucose Calcium Total Bilirubin AST ALT Alkaline Phosphatase Total Protein Albumin Globulin Albumin/Globulin Ratio Lipase HCG, Quant 208.4 Serum , Qual Blood Type A Positive Assessment & Plan Assessment and plan (1) Incomplete miscarriage: Status: Acute Assessment & Plan narrative: Patient with retained products of conception after elective AB by medication. After discussion options patient was given Cytotec to try to complete the process of complete miscarriage. She is to return if she has heavy bleeding, fevers, concerns.
--- NOTE | 2020-02-06 13:59 | PC.NURSE ---
patient was given [address] foss to take. Dr. foss told me that she was going to give her cytotec. The patient requested water to take for the medication. The patient told me that she took 4 pills that started with an m but the wrappers were thrown away.
[2020-02-06 14:19] VITALS: BP 125/73; PULSE 63; RESP 16; O2SAT 100
== END 2020-02-06 14:20 | disposition home or self-care (01) ==
PROVIDERS: Emergency Provider Emergency Medicine; Family Provider Family Medicine; PCP Family Medicine
DX: O03.4 Incomplete spontaneous abortion without complication (principal); R30.0 Dysuria; R10.32 Left lower quadrant pain
CPT/HCPCS: 36415; 76830; 76856; 80053; 81003; 83690; 84702; 84703; 85025; 86900; 86901; 93005; 96374; 99283; 99284; J1885

== ENCOUNTER → 2020-02-12 10:31 | Outpatient (CLI) | payer OTHER, MEDICAID, SELFPAY ==
--- NOTE | 2020-02-12 10:32 | DI.US.S_ITS ---
PROCEDURE: US PELVIC COMPLETE INDICATIONS: incomplete miscarriage TECHNIQUE: Real-time scanning was performed of the pelvic organs, with image documentation. Additional endovaginal scanning was necessary due to incomplete visualization of the adnexal and endometrial structures by transabdominal scanning. COMPARISON: [facility], PELVIC COMPLETE, 12/14/2019, 21:23. [facility], PELVIC COMPLETE, 02/06/2020, 12:07. FINDINGS: Transabdominal scanning: Limited scanning through the kidneys shows no hydronephrosis. No pathologic free abdominal or pelvic fluid. Endovaginal scanning: Uterus: Uterus is normal in size at 9.1 x 4.2 x 7.1 cm. The endometrium is again seen to be thickened, measuring 25 mm. Abnormal increased vascularity can be seen along the endometrial stripe. Ovaries: The right ovary measures 4.6 x 2.4 x 3.2 cm and demonstrates an apparent hemorrhagic cyst measuring up to 2.3 cm. A right ovarian simple cyst is seen that measures up to 2.4 cm. The left ovary measures 4 x 2.6 x 2.5 cm. A likely hemorrhagic cyst is seen within the left ovary measuring 1.7 cm. There is also a simple appearing cyst on the left measuring 2 cm. No adnexal masses can be seen on either side. IMPRESSION: Thickened, irregular endometrial stripe again seen, with abnormal vascularity. This remains highly suspicious for retained products of conception. Simple appearing cysts and hemorrhagic cysts can be seen involving both ovaries. Attention should be paid to these lesions on any future follow-up studies. Dictated by: Wayne Dominguez M.D. on 02/12/2020 at 11:52 Approved by: Wayne Dominguez M.D. on 02/12/2020 at 11:55
== END ==
PROVIDERS: Family Provider Family Medicine; PCP Family Medicine; Referring Provider Family Medicine; Visit Provider Family Medicine
DX: O03.4 Incomplete spontaneous abortion without complication (principal); N83.292 Other ovarian cyst, left side; N83.291 Other ovarian cyst, right side
CPT/HCPCS: 76830; 76856

== ENCOUNTER 2020-02-12 19:22 | Day surgery (SDC) | payer OTHER, MEDICAID, SELFPAY ==
[2020-02-12] VITALS (7 sets, daily range): BP systolic 95–134; BP diastolic 52–81; PULSE 68–96; RESP 15–24; TEMP 36.9–37.1; O2SAT 98–100; BMI 22.6
--- NOTE | 2020-02-12 | PATH_ITS ---
[facility] Accession Number: [id number] . 01 Material submitted: . product of conception - PRODUCTS OF CONCEPTION . 01 Clinical history: . DNC . 02 Diagnosis: Products of Conception: Rare chorionic villi present. Background endometrium with features suggestive of endometrial polyp. No evidence of neoplasm. [facility] 02/18/2020 1527 Local . 02 Comment: As part of routine quality assurance tech, Dr. Calhoun, has reviewed this case and agrees with the diagnosis above. . 02 Electronically signed: . Denver Dhillon MD, PhD, Pathologist NPI- [id number] . 01 Gross description: . Received in formalin, labeled products of conception and consists of multiple red-brown fragments of soft tissue and clotted blood measuring 2.5 x 2.5 x 0.8 cm in aggregate. No chorionic villi or parts are identified. The specimen is entirely submitted in cassette A1. ([id number]) /MRV 02/16/2020 1154 Local . 02 Pathologist provided ICD-10: O02.1 . 02 CPT . 674307 Performed at: 01 [facility] [address], [place], [place] [id number] MD Ntae No MD Phone: [phone] Performed at: 02 [facility] [address] [place], [place] [id number] MD Sabrina Funez MD Phone: [phone]
[2020-02-12] MEDS: LACTATED RINGERS 1,000 ML 100 ML IV (19:50)
--- NOTE | 2020-02-12 19:55 | PM.GYNHP.1 ---
History of Present Illness History of Present Illness Reason for admission: incomplete Narrative: Rajendra Johnson is a 24 year old 012 [facility]. The patient reports that after taking the mifepristone and misoprostol, she had bleeding and cramping. [facility] a follow-up appointment, but ultrasound was not available that day. As her bleeding and cramping and stopped, she was discharged from follow-up. She began having increasing cramping that brought her to the emergency room on 02/05, and was found to have retained products of conception. After counseling and consult with Dr. Adame, she elected for repeat course of misoprostol. Patient reports that after taking the misoprostol, she had cramping but no bleeding for 2 days. She began having heavy bleeding on SaturdayFebruary 07, and reports that this bleeding had decreased significantly until it began again in earnest today. She is passing clots and having bright red bleeding soaking it depends every 1-2 hours as of this afternoon, and is beginning to have nausea and dizziness. She denies fevers, chills, more than moderate suprapubic cramping. She denies change in bowel or bladder habits, or any abnormal vaginal discharge in between the episodes of vaginal bleeding. The patient's OBGYN history is otherwise significant for 2 uncomplicated term vaginal deliveries, though she did have retained products of conception shortly after the 2nd vaginal delivery which was treated with D&C. She denies any history of abnormal Pap smears, and was treated for PID in 2018. She has a history of ovarian cysts, though none managed surgically. She denies any contributory medical or other surgical history. [facility] Medical History (Updated 02/12/20 @ 19:58 by Nichole Blake MD) GERD (gastroesophageal reflux disease) (Inactive) Lumbar strain (Inactive) Ovarian cyst (Inactive) Thoracic back pain (Inactive) Social History Smoking Status: Never smoker Meds Home Medications and Allergies Home Medications Medication Instructions Recorded Confirmed Type ibuprofen 800 mg tablet 800 mg PO Q8H #60 tab 03/30/19 11/04/19 Rx albuterol sulfate 90 mcg/actuation 2 puff INHALATION Q4-6H PRN #18 08/11/19 11/04/19 Rx aerosol inhaler gram ondansetron 4 mg disintegrating 4 mg PO Q6-8H PRN #30 tab 01/12/20 Rx tablet hydrocodone 5 mg-acetaminophen 300 2 tab PO Q4-6H PRN #20 tab 02/06/20 Rx mg tablet hydrocodone-acetaminophen 1 tab PO Q4-6H PRN #10 tab 02/06/20 Rx Allergies Allergy/AdvReac Type Severity Reaction Status Date / Time hydromorphone [From DILAUDID] Allergy Severe APNEA Verified 02/06/20 11:37 tramadol [TRAMADOL] Allergy Unknown Verified 02/06/20 11:37 Review of Systems Constitutional Constitutional: Reports as per HPI Cardiovascular Cardiovascular: Reports system reviewed and no additional complaints, except as documented Respiratory Respiratory: Reports system reviewed and no additional complaints, except as documented Gastrointestinal Gastrointestinal: Reports system reviewed and no additional complaints, except as documented Genitourinary Genitourinary: Reports as per HPI Hematologic/Lymphatic Hematologic/Lymphatic: Reports as per HPI Exam Vital Signs (past 8 hours): 123/67, HR 78 Const General: cooperative, healthy appearing, comfortable and well groomed GI Palpation: soft and tender (mild suprapubic tenderness) Extrem General: normal to inspection Assessment & Plan Assessment and plan (1) Incomplete miscarriage: Status: Acute Assessment & Plan narrative: This patient presents with retained products of conception and heavy vaginal bleeding 1 month status post medication termination of 7 week . The patient reports that [facility]. We discussed the risks and benefits of D&C versus continued expectant management, including the risk of infection, hemorrhage, uterine perforation with damage to surrounding organs, and Asherman syndrome. We discussed that given her ongoing heavy bleeding status post 2 doses oral Cytotec, I would recommend proceeding with D&C remove the retained products of conception as she is in danger if she continues to hemorrhage. The patient vocalized understanding, informed consent was obtained. - Covid19 rapid testing pending - CBC, T&S - LR@100ccs/hr - 200mg IV doxycycline preoperatively
--- NOTE | 2020-02-12 20:03 | SUR.OPER ---
Lithotomy on padded OR bed, head on pillow, arms secured on padded arm boards at <90 degrees abduction. Legs secured in padded yellow fins stirrups.
[2020-02-12 20:19] LABS: Add Manual Diff / Slide Review NO; Basophils Absolute Auto 100 /uL (0-100); Basophils Percent Auto 0.5 % (0-2); Eosinophils Absolute Auto 100 /uL (0-450); Eosinophils Percent Auto 0.7 % (2-4); Hematocrit 32.6 % (36-46); Hemoglobin 11.1 g/dL (12.0-16.0); Lymphocytes Absolute Auto 2900 /uL (1100-4500); Lymphocytes Percent Auto 30.6 % (25-40); Mean Corpuscular Hemoglobin 31.6 PG (26-34); Mean Corpuscular Volume 93.1 fL (80-100); Monocytes Absolute Auto 600 /uL (0-900); Monocytes Percent Auto 6.4 % (3-14); Neutrophils Absolute Auto 5900 /uL (1500-7000); Neutrophils Percent Auto 61.8 % (50-75); Platelet Count 201 X10^3/uL (150-400); Red Blood Cell Count 3.51 X10^6/uL (4.0-5.2); Red Cell Distribution Width 13.3 % (11.6-14.8); White Blood Cell Count 9.5 X10^3/uL (4.5-11.0)
[2020-02-12 20:38] LABS: COVID19 -Nasal RAPID Negative (Negative)
[2020-02-12] MEDS: DOXYCYCLINE 200 MG in SODIUM CHLORIDE 0.9% 250 ML IV (21:37)
--- NOTE | 2020-02-12 22:05 | PM.OP.1 ---
Operative Date/Time/Diagnoses Date of procedure: 02/12/20 Time of procedure: 21:00 Pre-op diagnosis: Retained products of conception Post-op diagnosis: same Procedure & Clinicians Procedure: Suction dilation and curettage Same procedure as scheduled: Yes Indications: Retained products of conception Surgeon: Nichole Blake Click Yes if Unassisted: Yes Anesthesia Type: MAC +/- Operative Notes Findings: Approximately 8 week size uterus. Retroverted uterus, cervix dilated to approximately 1 cm. Passage of moderate amount of clot prior to procedure. Normal vulva and vagina. Specimen(s): other (Products of conception) Estimated Blood Loss (mL): 100 Procedure in detail: After informed consent was obtained, the patient was taken to the operating room. She was placed under IV sedation and LMA was placed, and she was placed into the dorsal lithotomy position. Bimanual exam revealed with the above findings, with a retroverted 8 week size uterus and 1 cm dilated cervix. She was prepped with Betadine and a straight catheterization performed. An open-sided speculum was placed into the vagina and the cervix visualized. Anterior lip the cervix was grasped with a single-tooth tenaculum. With gentle pressure, Hegar dilators were used to ensure good cervical dilation to 8 mm. A suction catheter tip was inserted gently through the cervix, and carefully advanced to the fundus. Suction was activated, and a small amount of tissue was removed. Three passes were made with the suction tip, with tissue removed during the 1st 2. A gentle curettage was performed, and a final pass with the suction tip performed with removal of blood. The tenaculum was removed from the anterior lip of the cervix, and pressure held on the tenaculum sites until good hemostasis was achieved. Minimal ongoing bleeding was present from the cervix, and the speculum was removed from the vagina. The patient tolerated the procedure well was taken to the PACU in stable condition. IVF 300ccs LR Complications: none Post-operative Condition: stable Disposition: PACU Plan for aftercare: Home with routine follow-up
[2020-02-12] MEDS: ALBUTEROL 2.5 MG/3 ML NEB (ADULT) INH (22:24)
== END 2020-02-12 22:50 | disposition home or self-care (01) ==
PROVIDERS: Family Provider Family Medicine; PCP Family Medicine; Referring Provider Obstetrics & Gynecology; Visit Provider Obstetrics & Gynecology
PROC: (CPT 58120; principal; 2020-02-12 20:00)
DX: O03.4 Incomplete spontaneous abortion without complication (principal); N83.292 Other ovarian cyst, left side; N83.291 Other ovarian cyst, right side; Z11.59 Encounter for screening for other viral diseases
CPT/HCPCS: 59812; 36415; 76830; 76856; 85025; 86850; 86900; 86901; 87635; J1100; J1885; J2250; J2405; J2704; J3010; J7613

== ENCOUNTER → 2020-03-11 12:53 | Outpatient (CLI) | payer OTHER, MEDICAID, SELFPAY ==
--- NOTE | 2020-03-11 12:55 | DI.RAD.S_ITS ---
PROCEDURE: XR CHEST 2V INDICATIONS: chest tightness TECHNIQUE: 2 views of the chest were acquired. COMPARISON: [facility], , THORACIC SPINE 3 VIEWS, 03/18/2017, 21:38. FINDINGS: Surgical changes and devices: None. Lungs and pleura: Lungs are clear. No pleural effusions or pneumothorax. Mediastinum: Mediastinal contours are normal. Heart size is normal. Bones and chest wall: No suspicious bony abnormalities. Soft tissues appear unremarkable. IMPRESSION: Normal chest plain films. Dictated by: Wayne Dominguez M.D. on 03/11/2020 at 12:27 Approved by: Wayne Dominguez M.D. on 03/11/2020 at 12:27
== END ==
PROVIDERS: Family Provider Family Medicine; PCP Family Medicine; Referring Provider Physician Assistant; Visit Provider Physician Assistant
DX: R07.89 Other chest pain (principal)
CPT/HCPCS: 71046

== ENCOUNTER → 2020-09-01 09:50 | Outpatient (CLI) | payer OTHER, MEDICAID, SELFPAY ==
[2020-09-01 11:03] LABS: Add Manual Diff / Slide Review NO; Basophils Absolute Auto 0 /uL (0-100); Basophils Percent Auto 0.5 % (0-2); Eosinophils Absolute Auto 0 /uL (0-450); Eosinophils Percent Auto 0.6 % (2-4); Hematocrit 39.1 % (36-46); Hemoglobin 12.9 g/dL (12.0-16.0); Lymphocytes Absolute Auto 2400 /uL (1100-4500); Lymphocytes Percent Auto 32.5 % (25-40); Mean Corpuscular Hemoglobin 30.7 PG (26-34); Mean Corpuscular Volume 93.1 fL (80-100); Monocytes Absolute Auto 400 /uL (0-900); Monocytes Percent Auto 5.7 % (3-14); Neutrophils Absolute Auto 4500 /uL (1500-7000); Neutrophils Percent Auto 60.7 % (50-75); Platelet Count 230 X10^3/uL (150-400); Red Cell Distribution Width 14.7 % (11.6-14.8); White Blood Cell Count 7.4 X10^3/uL (4.5-11.0)
[2020-09-01 11:47] LABS: Free T4, Direct Thyroxine 1.23 ng/dL (0.78-2.19)
[2020-09-01 12:01] LABS: Thyroid Stimulating Hormone 0.725 uIU/mL (0.47-4.68)
== END ==
PROVIDERS: Family Provider Family Medicine; PCP Family Medicine; Referring Provider Obstetrics & Gynecology; Visit Provider Obstetrics & Gynecology
DX: N93.9 Abnormal uterine and vaginal bleeding, unspecified (principal)
CPT/HCPCS: 36415; 84439; 84443; 85025

== ENCOUNTER 2020-10-08 15:03 | Emergency (ER) | payer OTHER, MEDICAID, SELFPAY ==
[2020-10-08 15:17] VITALS: BP 131/76; PULSE 78; RESP 20; TEMP 37; O2SAT 100; BMI 21.7
[2020-10-08 16:50] LABS: COVID19 -Nasal RAPID POSITIVE (Negative)
--- NOTE | 2020-10-08 18:01 | ED.HA ---
HPI - Headache General Chief Complaint: Headache Stated Complaint: HEADACHE, SINUS PRESSURE, SOB, CHEST PAIN Time Seen by Provider: 10/08/20 17:49 Mode of arrival: Ambulatory Limitations: no limitations History of Present Illness HPI Narrative: Patient is a 25-year-old female here for evaluation of approximately 1 week of a headache and sinus pressure and some shortness of breath. States that yesterday she lost her sense of taste and smell. She is not vaccinated for COVID-19. Related Data Previous Rx's Medication Instructions Recorded ibuprofen 800 mg tablet 800 mg PO Q8H #60 tab 03/30/19 albuterol sulfate 90 mcg/actuation 2 puff INHALATION Q4-6H PRN #18 03/11/20 aerosol inhaler gram norelgestromin 150 mcg-e.estradiol 1 patch TRANSDERMAL QWEEK #12 ea 04/20/20 35 mcg/24 hr weekly transderm patch (Xulane) ondansetron 4 mg disintegrating 4 mg PO Q6-8H PRN #30 tab 04/20/20 tablet omeprazole 20 mg capsule,delayed 20 mg PO BID #60 cap 06/08/20 release Allergies Allergy/AdvReac Type Severity Reaction Status Date / Time hydromorphone [From DILAUDID] Allergy Severe APNEA Verified 10/08/20 15:16 tramadol [TRAMADOL] Allergy Unknown apnea Verified 10/08/20 15:16 Review of Systems Constitutional Constitutional: Denies fever(s) ENT Ears, Nose, Mouth, and Throat: Reports as per HPI Cardiovascular Cardiovascular: Reports as per HPI Respiratory Respiratory: Reports as per HPI Gastrointestinal Gastrointestinal: Reports system reviewed and no additional complaints, except as documented Genitourinary Genitourinary: Reports system reviewed and no additional complaints, except as documented Integumentary/Breasts Skin/Breast: Denies rash Hematologic/Lymphatic On Anticoagulants: No Patient History Medical History GERD (gastroesophageal reflux disease) Lumbar strain Ovarian cyst Thoracic back pain Social History household members: family Smoking Status: Current some day smoker Smoking Status: Current some day smoker alcohol intake frequency: 0-2 drinks per day Substance Use Type: marijuana Exam Initial Vital Signs Initial Vital Signs: Vital Signs Temperature 98.6 F 10/08/20 15:17 Pulse Rate 78 10/08/20 15:17 Respiratory Rate 20 10/08/20 15:17 Blood Pressure 131/76 10/08/20 15:17 Pulse Oximetry 100 10/08/20 15:17 Const General: cooperative and healthy appearing XAVIERNC Head: normal to inspection and normocephalic Resp Effort & Inspection: normal respiratory effort Cardio Rate: regular rate Skin General: no rashes or lesions noted Neuro General: patient alert, patient awake and patient oriented x3 Extrem General: normal to inspection Psych Appearance: grossly normal and well kempt Course Orders Ordered: ED Orders 10/08/20 15:20 COVID19 -Nasal swab/Pre-Proc Stat Vital Signs Vital signs: Vital Signs - 8 hr 10/08/20 15:17 Temperature 98.6 F Pulse Rate 78 Respiratory Rate 20 Blood Pressure 131/76 Pulse Oximetry 100 MDM - Headache Lab Data Attestation: I reviewed the patient's lab results. Labs: Lab Results 10/08/20 Range/Units 15:20 SARS-CoV-2 (PCR) Positive H (Negative) MDM Narrative Medical decision making narrative: COVID is positive. She is not hypoxic. No respiratory distress. Afebrile. I did discuss with her the results of the lab test. We did discuss the current guidelines with regard to quarantine. Discussed return precautions and follow-up instructions. She expressed understanding and agreement. Discharge Plan Departure Patient Disposition: Home Clinical Impression: Headache, COVID-19 Instructions: DI for COVID-19 (Suspected or Confirmed ) Activity Restrictions/Additional Instructions: Your testing today was positive for COVID-19. You can take Tylenol for any headaches. You need to quarantine yourself for the next 14 days and until you have been symptom free for 24 hours. Return to the emergency department for any new or worsening symptoms Prescriptions: No Action ibuprofen 800 mg tablet 800 mg PO Q8H Qty: 60 RF: 0 omeprazole 20 mg capsule,delayed release(DR/EC) 20 mg PO BID Qty: 60 RF: 1 ondansetron 4 mg tablet,disintegrating 4 mg PO Q6-8H PRN (Reason: nausea and vomiting) Qty: 30 RF: 0 Xulane 150-35 mcg/24 hr patch weekly 1 patch transdermal QWEEK Qty: 12 RF: 3 albuterol sulfate 90 mcg/actuation HFA aerosol inhaler 2 puff INHALATION Q4-6H PRN (Reason: shortness of breath or wheezing) Qty: 18 RF: 3 Referrals: Naida Stokes MD [Primary Care Provider] -
== END 2020-10-08 18:47 | disposition home or self-care (01) ==
PROVIDERS: Emergency Medicine; Emergency Provider Emergency Medicine; Family Provider Family Medicine; PCP Family Medicine
DX: U07.1 COVID-19 (principal)
CPT/HCPCS: 87635; 99281; 99282; C9803

== ENCOUNTER → 2020-11-21 10:02 | Outpatient (CLI) | payer OTHER, MEDICAID, SELFPAY ==
--- NOTE | 2020-11-21 10:03 | DI.US.S_ITS ---
PROCEDURE: US PELVIC LIMITED INDICATIONS: EXTERNAL ULTRASOUND FOR LEFT/RIGHT LABIAL MASSES TECHNIQUE: Limited ultrasound evaluation of the areas of interest in the labia were obtained. COMPARISON: None. FINDINGS: Focused sonographic evaluation of the left and right labia demonstrate no evidence of fluid collection or soft tissue mass. IMPRESSION: No fluid collection or soft tissue mass identified in the labia. Dictated by: Tres Talley M.D. on 11/21/2020 at 11:33 Approved by: Tres Talley M.D. on 11/21/2020 at 11:44
== END ==
PROVIDERS: Family Provider Family Medicine; PCP Family Medicine; Referring Provider Obstetrics & Gynecology; Visit Provider Obstetrics & Gynecology
DX: N94.89 Other specified conditions associated with female genital organs and menstrual cycle (principal); N93.9 Abnormal uterine and vaginal bleeding, unspecified
CPT/HCPCS: 76857